=== PATIENT | female | born 1930 | race Caucasian/White ===

== ENCOUNTER 2016-03-01 14:52 | Outpatient (CLI) | payer MEDICARE, BC, OTHER | END 2016-03-01 14:53 | disposition home or self-care (01) | DX: M06.9 Rheumatoid arthritis, unspecified (principal); Z79.899 Other long term (current) drug therapy ==

== ENCOUNTER 2016-04-26 14:50 | Outpatient (CLI) | payer MEDICARE, BC, OTHER | END 2016-04-26 14:51 | disposition home or self-care (01) | DX: M06.9 Rheumatoid arthritis, unspecified (principal); Z79.899 Other long term (current) drug therapy ==

== ENCOUNTER 2016-06-21 14:51 | Outpatient (CLI) | payer MEDICARE, BC, OTHER | END 2016-06-21 14:52 | disposition home or self-care (01) | DX: M06.9 Rheumatoid arthritis, unspecified (principal); Z79.899 Other long term (current) drug therapy ==

== ENCOUNTER 2016-09-19 14:17 | Outpatient (CLI) | payer MEDICARE, BC, OTHER | END 2016-09-19 14:18 | disposition critical access hospital (66) | LOC: EMS 14:17 | PROVIDERS: ATTEND Surgery | DX: R42 Dizziness and giddiness (principal) | CPT/HCPCS: A0425; A0427 ==

== ENCOUNTER 2016-09-19 14:38 | Emergency (ER) | payer MEDICARE, BC, OTHER ==
[2016-09-19] MEDS ORDERED: SODIUM CHLORIDE 0.9% 500 ML IV ONE (14:47)
[2016-09-19 15:05] LABS: BASOPHILS # (AUTO) 0.1 10^3/uL (0.0-0.1); BASOPHILS % (AUTO) 0.6 %; EOSINOPHILS % (AUTO) 0.2 %; HCT - HEMATOCRIT 36.9 % (37.0-47.0); HGB - HEMOGLOBIN 12.4 g/dL (12.0-16.0); LYMPHOCYTES # (AUTO) 1.3 10^3/uL (1.5-3.5); LYMPHOCYTES % (AUTO) 12.1 %; MEAN CORPUSCULAR HEMOGLOBIN 36.5 pg (27.0-31.0); MEAN CORPUSCULAR HGB CONC 33.7 g/dL (32.0-36.0); MEAN CORPUSCULAR VOLUME 108.1 fL (81.0-99.0); MONOCYTES # (AUTO) 0.6 10^3/uL (0.0-1.0); MONOCYTES % (AUTO) 5.7 %; NEUTROPHILS # (AUTO) 8.5 10^3/uL (1.5-6.6); NEUTROPHILS % (AUTO) 81.4 %; NUCLEATED RED BLOOD CELLS AUTO 0.3 /100WBC; RED BLOOD COUNT 3.41 10^6/uL (4.20-5.40); RED CELL DISTRIBUTION WIDTH 14.9 % (12.0-15.0); UNCORRECTED WHITE BLOOD COUNT 10.4 x10^3/uL; WHITE BLOOD COUNT 10.4 x10^3/uL (4.8-10.8)
--- NOTE | 2016-09-19 15:11 | ED Physician Documentation ---
History of Present Illness - Stated complaint Stated Complaint: LIGHTHEADED - Chief complaint Chief Complaint: Cardiac - History obtained from History obtained from: Patient, EMS, Other (pmd) - History of Present Illness Timing: How many weeks ago (1) - Additonal information Additional information: This 86-year-old female went to her primary care doctor's office for routine follow-up today and was noted to have a heart rate of 130 and a low blood pressure with a systolic of 70. The patient herself states that she was not feeling ill and does not have any specific complaints. She has had intermittent lightheadedness and dizziness and this is been ongoing for some time. She has had a nosebleed last week.She has not had any recent medication changes or recent illness. Review of Systems Constitutional: denies: Fever, Chills, Myalgias, Fatigue, Sweats Eyes: denies: Decreased vision Ears: denies: Ear pain Nose: reports: Epistaxis (last week). denies: Congestion Throat: denies: Dental pain / toothache, Oral lesions / sores, Sore throat Cardiac: reports: Palpitations. denies: Chest pain / pressure, Pedal edema, Calf pain Respiratory: denies: Dyspnea, Cough GI: denies: Abdominal Pain, Nausea, Vomiting, Constipation, Diarrhea : denies: Dysuria, Frequency Skin: denies: Rash Musculoskeletal: denies: Neck pain, Back pain, Extremity pain Neurologic: denies: Generalized weakness, Focal weakness, Numbness, Difficulty speaking, Near syncope, Syncope, Seizure, Confused, Altered mental status, Headache, Head injury, LOC PD PAST MEDICAL HISTORY - Past Medical History Cardiovascular: Hypertension Respiratory: COPD : Frequency HEENT: Chronic hearing loss Musculoskeletal: Rheumatoid arthritis, Osteoporosis Derm: None - Past Surgical History Past Surgical History: Yes /SIGHTER: Hysterectomy - Present Medications Home Medications: Ambulatory Orders Medication Instructions Recorded Confirmed Calcium Citrate/Vitamin D3 1 each PO DAILY 06/14/12 08/18/16 [Calcium Citrate - Vit D Tablet] Celecoxib [Celebrex] 200 mg PO BID 06/14/12 08/18/16 Cranberry Fruit [Cranberry] 2 tab PO DAILY 06/14/12 08/18/16 Folic Acid 1 mg PO DAILY 06/14/12 08/18/16 Lecithin 1,200 mg PO DAILY 06/14/12 09/19/16 Leucovorin Calcium 5 mg PO Q7D 06/14/12 09/19/16 Methotrexate 15 mg PO Q7D 06/14/12 09/19/16 Prazosin HCl [Minipress] 2 tab ORAL BID 06/14/12 08/18/16 inFLIXimab [Remicade] 400 mg IV Q30D 07/27/13 08/18/16 Denosumab [Prolia] 60 mg IM ONCE 07/10/14 08/18/16 Nebivolol HCl [Bystolic] 5 mg PO DAILY 03/19/15 09/19/16 Multivitamin [Multiple Vitamins] 1 tab PO DAILY 06/23/16 09/19/16 Olmesartan/Hydrochlorothiazide 2 tab PO DAILY MDD 20/12.5 mg tabs 06/23/1609/19 [Olmesartan-Hctz 20-12.5 mg Tab] - Allergies Allergies/Adverse Reactions: Allergies Allergy/AdvReac Type Severity Reaction Status Date / Time Penicillins Allergy Intermediate Rash Verified 06/23/16 16:11 Sulfa (Sulfonamide Allergy Intermediate Rash Verified 06/23/16 16:11 Antibiotics) - Social History Does the pt smoke?: No Smoking Status: Never smoker Does the pt drink ETOH?: No Does the pt have substance abuse?: No - Immunizations Immunizations are current?: Yes - POLST Patient has POLST: No PD ED PE NORMAL - Vitals Vital signs reviewed: Yes (tachycardic and hypotensive ) - General General: Alert and oriented X 3, No acute distress, Well developed/nourished - HEENT HEENT: Atraumatic, PERRL - Neck Neck: Supple, no meningeal sign - Cardiac Cardiac: Other (tachy without murmer and regular) - Respiratory Respiratory: No respiratory distress, Other (scattered rhonchi) - Abdomen Abdomen: Soft, Non tender - Back Back: No CVA TTP, No spinal TTP - Derm Derm: Normal color, Warm and dry, No rash - Extremities Extremities: No edema, Other (arthritic deformity of the hands.) - Neuro Neuro: Alert and oriented X 3, credit risk associate 2-12 intact, No motor deficit, No sensory deficit, Normal speech - Psych Psych: Normal mood, Normal affect Results - Vitals Vitals: Vital Signs - 24 hr 08/15/17 08/15/17 08/15/17 14:46 14:51 16:58 Temperature 36.2 C L Heart Rate 86 111 H Respiratory 16 16 Rate Blood Pressure 96/76 119/80 O2 Saturation 98 95 09/19/16 09/19/16 09/19/16 17:30 17:39 18:05 Temperature Heart Rate 80 121 H 59 L Respiratory 16 Rate Blood Pressure 131/95 H 167/121 H 107/57 L O2 Saturation 97 96 09/19/16 09/19/16 18:31 19:37 Temperature Heart Rate 55 L 61 Respiratory 18 Rate Blood Pressure 128/74 164/85 H O2 Saturation 97 100 Oxygen O2 Source Room air - EKG (time done) 1448 Rate: Rate (enter#) (122) Rhythm: Other (read a junctional tachycardia) Compare to prior EKG: Old EKG unavailable Computer interpretation: Agree with computer 1726 Rate: Rate (enter#) (66) Rhythm: NSR Ischemia: Normal ST segments Compare to prior EKG: Changed from prior EKG (rhythm is now identified as sinus) Computer interpretation: Agree with computer - Labs Labs: Laboratory Tests 09/19/16 09/19/16 09/19/16 14:58 14:58 14:58 WBC 10.4 RBC 3.41 L Hgb 12.4 Hct 36.9 L MCV 108.1 H MCH 36.5 H MCHC 33.7 RDW 14.9 Plt Count 206 MPV 9.0 Neut # 8.5 H Lymph # 1.3 L [place] # 0.6 Eos # 0.0 Baso # 0.1 Absolute Nucleated RBC 0.03 Nucleated RBCs 0.3 Sodium 133 L Potassium 4.5 Chloride 97 L Carbon Dioxide 27 Anion Gap 9.0 BUN 37 H Creatinine 1.0 Estimated GFR (MDRD) 53 L Glucose 103 H Calcium 9.0 Total Bilirubin 0.9 AST 29 ALT 19 Alkaline Phosphatase 36 L Troponin I 0.27 Total Protein 6.3 L Albumin 3.5 Globulin 2.8 Albumin/Globulin Ratio 1.3 Lipase 34 Urine Color Urine Clarity Urine pH Ur Specific [place] Urine Protein Urine Glucose (UA) Urine Ketones Urine Occult Blood Urine Nitrite Urine Bilirubin Urine Urobilinogen Ur Leukocyte Esterase Ur Microscopic Review Urine Culture Comments 09/19/16 09/19/16 16:30 17:07 WBC RBC Hgb Hct MCV MCH MCHC RDW Plt Count MPV Neut # Lymph # [place] # Eos # Baso # Absolute Nucleated RBC Nucleated RBCs Sodium Potassium Chloride Carbon Dioxide Anion Gap BUN Creatinine Estimated GFR (MDRD) Glucose Calcium Total Bilirubin AST ALT Alkaline Phosphatase Troponin I 0.79 H* Total Protein Albumin Globulin Albumin/Globulin Ratio Lipase Urine Color YELLOW Urine Clarity CLEAR Urine pH 6.0 Ur Specific [place] 1.015 Urine Protein NEGATIVE Urine Glucose (UA) NEGATIVE Urine Ketones NEGATIVE Urine Occult Blood NEGATIVE Urine Nitrite NEGATIVE Urine Bilirubin NEGATIVE Urine Urobilinogen 0.2 (NORMAL) Ur Leukocyte Esterase NEGATIVE Ur Microscopic Review NOT INDICATED Urine Culture Comments NOT INDICATED - Rads (name of study) 2 view chest Radiology: Prelim report reviewed (Impression: New lateral left upper lobe opacity raising concern for lung nodule. Recommend chest CT.), EMP read indepedently, See rad report PD MEDICAL DECISION MAKING - ED course Complexity details: reviewed results, re-evaluated patient, considered differential, d/w patient, d/w family ED course: 86-year-old female arrived here from her primary care doctor's office by ambulance with heart rate of 130. She is asymptomatic with this but has a blood pressure of about 90 on arrival to the emergency department. I am not able to elicit a history of the patient feeling ill prior to all this. She does relate a history of periodic lightheaded and dizziness that occurred in brief episodes lasting seconds 1 week ago. Today she has a negative review of systems denies any specific symptoms.Her initial electrocardiogram is read by the computer as junctional tachycardia and I am not able to elicit P waves in any leads. The regular rhythm is regular with a narrow complex. She is administered a liter of saline which reduces a heart rate to 110. She is administered adenosine 6 mg intravenously with conversion to a sinus rhythm with a rate of 80. Her initial troponin is mildly elevated at 0.27. A repeat troponin 2 hours later is 0.79.. She does revert to the junctional tachycardia and is given IV diltiazem. Her rate slows into the 60s and is stable. Dr. Delaney at [facility] is consulted in the case and recommends administration of 180 mg of diltiazem orally and he will contact the nursing dog license officer supervisor to arrange a bed for the patient in transfer. Departure - Departure Disposition: 02 Transfer Acute Care Hosp Clinical Impression: SVT (supraventricular tachycardia) Myocardial infarction acute Qualifiers: Myocardial infarction ST status: non-ST elevation myocardial infarction Qualified Code(s): I21.4 - Non-ST elevation (NSTEMI) myocardial infarction Condition: Stable Discharge Date/Time: 09/19/16 20:15
[2016-09-19 15:20] LABS: ALBUMIN/GLOBULIN RATIO 1.3 (1.0-2.2); BILIRUBIN,TOTAL 0.9 mg/dL (0.2-1.0); POTASSIUM 4.5 mmol/L (3.5-5.0); TOTAL PROTEIN 6.3 g/dL (6.7-8.2)
--- NOTE | 2016-09-19 15:33 | XRAY Preliminary Report ---
Exam: XR Chest 2 View PA/LAT IMPRESSION: 1. New lateral left upper lobe opacity raising concern for lung nodule. Recommend chest CT. [facility] SITE ID: [id number]
--- NOTE | 2016-09-19 15:36 | XRAY Report ---
EXAM: CHEST RADIOGRAPHY EXAM DATE: 09/19/2016 02:50 PM. CLINICAL HISTORY: Dyspnea. COMPARISON: 09/13/2013. TECHNIQUE: 2 views. FINDINGS: Lungs/Pleura: New lateral left upper lobe opacity projecting near an EKG lead. Mediastinum: Heart and mediastinal contours are unremarkable. Other: Severe S-shaped thoracolumbar scoliosis, convex left at the thoracolumbar junction. Left upper quadrant surgical clips. IMPRESSION: 1. New lateral left upper lobe opacity raising concern for lung nodule. Recommend chest CT. [facility] Referring Provider Line: [phone] SITE ID: [id number]
[2016-09-19 16:44] LABS: BILIRUBIN,URINE NEGATIVE (NEGATIVE)
[2016-09-19 16:45] LABS: UA CHARGE (STRIP ONLY) YES; UR CULTURE IF IND NOT INDICATED
[2016-09-19] MEDS ORDERED: ADENOSINE 6 MG/2 ML VIAL IVP STA (17:24)
[2016-09-19] MEDS ORDERED: ADENOSINE 6 MG/2 ML VIAL IVP ONE (17:24)
[2016-09-19] MEDS ORDERED: diltiaZEM INJ 5 MG/ML VIAL IVP STA (17:49)
[2016-09-19] MEDS ORDERED: diltiaZEM INJ 5 MG/ML VIAL ONE (17:57)
[2016-09-19] MEDS ORDERED: diltiaZEM CD 120 MG CAPSULE PO STA (18:44)
[2016-09-19] MEDS ORDERED: diltiaZEM CD 180 MG CAPSULE PO STA (18:46)
[2016-09-19 19:37] VITALS: BP 164/85
== END 2016-09-19 20:15 | disposition short-term general hospital (02) ==
LOC: EDUNIT# → ED 14:38
DX: I47.1 Supraventricular tachycardia (principal); I21.4 Non-ST elevation (NSTEMI) myocardial infarction; I10 Essential (primary) hypertension; R94.31 Abnormal electrocardiogram [ECG] [EKG]
CPT/HCPCS: 36415; 71020; 80053; 81003; 83690; 84484; 85025; 93005; 96361; 96374; 96375; 99284; 99285; A9270; J0153; 81001; 87086

== ENCOUNTER 2016-09-19 20:18 | Outpatient (CLI) | payer MEDICARE, BC, OTHER | END 2016-09-19 20:19 | disposition short-term general hospital (02) | LOC: EMS 20:18 | PROVIDERS: ATTEND Surgery | DX: I21.4 Non-ST elevation (NSTEMI) myocardial infarction (principal) | CPT/HCPCS: A0425; A0426 ==

== ENCOUNTER 2016-11-15 17:23 | Outpatient (CLI) | payer MEDICARE, BC, OTHER ==
[2016-11-15] MEDS ORDERED: IOPAMIDOL-300 50 ML VIAL ONE (17:44)
[2016-11-15] MEDS ORDERED: IOPAMIDOL-300 100 ML VIAL ONE (17:44)
[2016-11-15] MEDS ORDERED: IOPAMIDOL-300 100 ML VIAL IVP ONE ×2 (20:24)
[2016-11-15] MEDS ORDERED: IOPAMIDOL-300 50 ML VIAL PO ONE (20:24)
--- NOTE | 2016-11-15 21:19 | CT Preliminary Report ---
Exam: CT ABDOMEN/PELVIS W/ IMPRESSION: 1. Grossly stable pancreatic head Lesion. 2. New mild left hydronephrosis. Moderate left renal atrophy. 3. Chronic lung disease. 4. Hepatic and right renal cysts. 5. Stable, otherwise unremarkable exam. 6. Exam limited by the lack of intravenous contrast as discussed above. [facility] The call report notification system was initiated by Dr. Kellie Rucker at 21:12 hrs on 11/15/16. The above findings were discussed with Ms De Jesusen Roger PAC by Dr. Kellie Rucker at 21:17 hrs on . SITE ID: [id number]
--- NOTE | 2016-11-15 21:38 | CT Report ---
EXAM: CT ABDOMEN AND PELVIS EXAM DATE: 11/15/2016 07:40 PM. CLINICAL HISTORY: Pancreatic cancer. Epigastric pain, nausea with vomiting, unspecified. COMPARISONS: 07/09/2015. TECHNIQUE: Routine helical CT imaging was performed through the abdomen and pelvis. IV contrast: Esse ntially a noncontrast study since there was extravasation of contrast. Enteric contrast: Oral. Recons tructions: Coronal and sagittal. In accordance with CT protocol optimization, one or more of the following dose reduction techniques w ere utilized for this exam: automated exposure control, adjustment of mA and/or KV based on patient s ize, or use of iterative reconstructive technique. FINDINGS: Lung Bases: Emphysematous changes. Liver: Several 2 cm and smaller hepatic cysts. Gallbladder/Bile Ducts: Unremarkable. Spleen: Absent. Pancreas: Grossly stable 5 cm multi-compartmental cystic lesion head of the pancreas. No pancreatic d uct dilatation in the residual pancreas. Adrenal Glands: Normal. Kidneys: 4 cm right renal cyst. Moderate left renal atrophy. New mild left hydronephrosis. Ureters cannot be assessed due to minimal retroperitoneal fat and lack of intravenous contrast. Peritoneal Cavity/Bowel: Normal. No free fluid, free air or adenopathy. No masses or acute inflammato ry process. Oral contrast extends through to the transverse colon. Appendix not seen. Pelvic Organs: Hysterectomy. Small caliber urinary bladder. No free fluid nor adnexal mass lesions. Vasculature: No aneurysms or other significant abnormality. Bones: Remote ununited fracture left symphysis. Marked degenerative changes throughout the markedly scoliotic spine. Other: None. IMPRESSION: 1. Grossly stable pancreatic head cystic lesion. 2. New mild left hydronephrosis. Moderate left renal atrophy. 3. Chronic lung disease. 4. Hepatic and right renal cysts. 5. Stable, otherwise unremarkable exam. 6. Exam limited by the lack of intravenous contrast as discussed above. [facility] The call report notification system was initiated by Dr. Kellie Rucker at 21:12 hrs on 11/15/16. The above findings were discussed with Ms Zeina Duran PAC by Dr. Kellie Rucker at 21:17 hrs on . Referring Provider Line: [phone] SITE ID: [id number]
== END 2016-11-15 17:24 | disposition home or self-care (01) ==
LOC: DI 17:23
PROVIDERS: ATTEND Physician Assistant Medical
DX: K86.9 Disease of pancreas, unspecified (principal); N13.30 Unspecified hydronephrosis; N26.1 Atrophy of kidney (terminal); J98.4 Other disorders of lung; N28.1 Cyst of kidney, acquired; K76.89 Other specified diseases of liver
CPT/HCPCS: 74177; Q9967

== ENCOUNTER 2016-11-15 20:06 | Emergency (ER) | payer MEDICARE, BC, OTHER ==
--- NOTE | 2016-11-15 21:08 | ED Physician Documentation ---
PD HPI UPPER EXT INJURY - Stated complaint Stated Complaint: IV SITE FAILURE - Chief complaint Chief Complaint: Ext Problem - History obtained from History obtained from: Patient - History of Present Illness Type of injury: Other (In CT tonight for a contrast-enhanced scan, It infiltrated in the right antecubital fossa. She has no symptoms of pain there or tightness. 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 - Present Medications Home Medications: Ambulatory Orders Medication Instructions Recorded Confirmed Calcium Citrate/Vitamin D3 1 each PO DAILY 06/14/12 08/18/16 [Calcium Citrate - Vit D Tablet] Celecoxib [Celebrex] 200 mg PO BID 06/14/12 08/18/16 Cranberry Fruit [Cranberry] 2 tab PO DAILY 06/14/12 08/18/16 Folic Acid 1 mg PO DAILY 06/14/12 08/18/16 Lecithin 1,200 mg PO DAILY 06/14/12 09/19/16 Leucovorin Calcium 5 mg PO Q7D 06/14/12 09/19/16 Methotrexate 15 mg PO Q7D 06/14/12 09/19/16 Prazosin HCl [Minipress] 2 tab ORAL BID 06/14/12 08/18/16 inFLIXimab [Remicade] 400 mg IV Q30D 07/27/13 08/18/16 Denosumab [Prolia] 60 mg IM ONCE 07/10/14 08/18/16 Nebivolol HCl [Bystolic] 5 mg PO DAILY 03/19/15 09/19/16 Multivitamin [Multiple Vitamins] 1 tab PO DAILY 06/23/16 09/19/16 Olmesartan/Hydrochlorothiazide 2 tab PO DAILY MDD 20/12.5 mg tabs 06/23/1609/19 [Olmesartan-Hctz 20-12.5 mg Tab] - Allergies Allergies/Adverse Reactions: Allergies Allergy/AdvReac Type Severity Reaction Status Date / Time Penicillins Allergy Intermediate Rash Verified 06/23/16 16:11 Sulfa (Sulfonamide Allergy Intermediate Rash Verified 06/23/16 16:11 Antibiotics) - Social History Does the pt smoke?: No Smoking Status: Never smoker Does the pt drink ETOH?: No Does the pt have substance abuse?: No - Immunizations Immunizations are current?: Yes - POLST Patient has POLST: No PD ED PE NORMAL - Vitals Vital signs reviewed: Yes - General General: Alert and oriented X 3, No acute distress - Extremities Extremities: Other (In the right antecubital fossa there is a small area of swelling, there is no skin breakdown, tenderness, or limited range of motion.) - Neuro Neuro: Alert and oriented X 3, Normal speech Results - Vitals Vitals: Vital Signs - 24 hr 11/15/16 20:20 Temperature 36.7 C Heart Rate 75 Respiratory 17 Rate Blood Pressure 185/79 H O2 Saturation 97 Oxygen O2 Source Room air PD MEDICAL DECISION MAKING - ED course ED course: Review of the available literature shows that there is no specific intervention that has been proven to decrease morbidity from contrast extravasation and watchful waiting was advised. Departure - Departure Disposition: 01 Home, Self Care Clinical Impression: Extravasation injury of intravenous catheter site with other complication Qualifiers: Encounter type: initial encounter Qualified Code(s): T82.898A - Other specified complication of vascular prosthetic devices, implants and grafts, initial encounter Condition: Good Record reviewed to determine appropriate education?: Yes Comments: Use warm compresses. Return immediately if he develops significant pain, limited range of motion, or skin discoloration other than what is already present. Your blood pressure was elevated today on check into the emergency department. This does not mean that you have hypertension, it is a common phenomenon to come to the emergency department and have elevated blood pressure. I recommend that she see your primary care physician within the week to have it rechecked when you are feeling better.
[2016-11-15 21:53] VITALS: BP 172/81
== END 2016-11-15 21:59 | disposition home or self-care (01) ==
LOC: ED 20:06
DX: T82.898A Other specified complication of vascular prosthetic devices, implants and grafts, initial encounter (principal); I10 Essential (primary) hypertension; J44.9 Chronic obstructive pulmonary disease, unspecified; M06.9 Rheumatoid arthritis, unspecified; M81.0 Age-related osteoporosis without current pathological fracture; R10.13 Epigastric pain; R11.2 Nausea with vomiting, unspecified; C25.9 Malignant neoplasm of pancreas, unspecified; K86.9 Disease of pancreas, unspecified; N13.30 Unspecified hydronephrosis; N26.1 Atrophy of kidney (terminal); J98.4 Other disorders of lung; N28.1 Cyst of kidney, acquired; K76.89 Other specified diseases of liver
CPT/HCPCS: 36415; 74177; 80053; 82150; 83690; 85025; 86301; 87339; 99282; 99283; Q9967

== ENCOUNTER 2016-11-15 22:06 | Outpatient (CLI) | payer MEDICARE, BC, OTHER ==
[2016-11-15 19:12] LABS: ALBUMIN/GLOBULIN RATIO 1.1 (1.0-2.2); BASOPHILS # (AUTO) 0.1 10^3/uL (0.0-0.1); BASOPHILS % (AUTO) 0.4 %; BILIRUBIN,TOTAL 0.6 mg/dL (0.2-1.0); CALCIUM 9.5 mg/dL (8.5-10.3); CREATININE 0.8 mg/dL (0.4-1.0); EOSINOPHILS % (AUTO) 0.2 %; HCT - HEMATOCRIT 33.8 % (37.0-47.0); HGB - HEMOGLOBIN 11.1 g/dL (12.0-16.0); LYMPHOCYTES # (AUTO) 1.6 10^3/uL (1.5-3.5); LYMPHOCYTES % (AUTO) 13.1 %; MEAN CORPUSCULAR HEMOGLOBIN 35.6 pg (27.0-31.0); MEAN CORPUSCULAR HGB CONC 32.8 g/dL (32.0-36.0); MEAN CORPUSCULAR VOLUME 108.4 fL (81.0-99.0); MONOCYTES # (AUTO) 1.1 10^3/uL (0.0-1.0); MONOCYTES % (AUTO) 9.1 %; NEUTROPHILS # (AUTO) 9.5 10^3/uL (1.5-6.6); NEUTROPHILS % (AUTO) 77.2 %; NUCLEATED RED BLOOD CELLS AUTO 0.2 /100WBC; POTASSIUM 4.8 mmol/L (3.5-5.0); RED BLOOD COUNT 3.12 10^6/uL (4.20-5.40); RED CELL DISTRIBUTION WIDTH 14.6 % (12.0-15.0); TOTAL PROTEIN 6.6 g/dL (6.7-8.2); UNCORRECTED WHITE BLOOD COUNT 12.4 x10^3/uL; WHITE BLOOD COUNT 12.4 x10^3/uL (4.8-10.8)
[2016-11-15 19:27] LABS: H. PYLORI IGG ANTIBODY Negative (Negative); HPYLORI NEG QC Negative (Negative); HPYLORI POS QC POSITIVE (Positive)
== END 2016-11-15 22:07 | disposition home or self-care (01) ==
LOC: LAB.WCP 22:06
PROVIDERS: ATTEND Physician Assistant Medical
DX: R11.2 Nausea with vomiting, unspecified (principal); C25.9 Malignant neoplasm of pancreas, unspecified; R10.13 Epigastric pain
CPT/HCPCS: 36415; 80053; 82150; 83690; 85025; 86301; 87339

== ENCOUNTER 2016-11-17 08:00 | Outpatient (CLI) | payer MEDICARE, BC, OTHER | END 2016-11-17 08:01 | disposition home or self-care (01) | LOC: LAB.R 08:00 | PROVIDERS: ATTEND Physician Assistant Medical | DX: R10.13 Epigastric pain (principal) | CPT/HCPCS: 87086 ==

== ENCOUNTER 2016-11-28 14:46 | Outpatient (CLI) | payer MEDICARE, BC, OTHER ==
[2016-11-28 19:15] LABS: BASOPHILS # (AUTO) 0.1 10^3/uL (0.0-0.1); BASOPHILS % (AUTO) 0.8 %; EOSINOPHILS # (AUTO) 0.1 10^3/uL (0.0-0.7); EOSINOPHILS % (AUTO) 1.2 %; HCT - HEMATOCRIT 32.9 % (37.0-47.0); LYMPHOCYTES # (AUTO) 2.2 10^3/uL (1.5-3.5); LYMPHOCYTES % (AUTO) 28.3 %; MEAN CORPUSCULAR HEMOGLOBIN 36.5 pg (27.0-31.0); MEAN CORPUSCULAR HGB CONC 33.3 g/dL (32.0-36.0); MEAN CORPUSCULAR VOLUME 109.5 fL (81.0-99.0); MEAN PLATELET VOLUME 9.8 fL (7.9-10.8); MONOCYTES # (AUTO) 0.8 10^3/uL (0.0-1.0); MONOCYTES % (AUTO) 10.6 %; NEUTROPHILS # (AUTO) 4.7 10^3/uL (1.5-6.6); NEUTROPHILS % (AUTO) 59.1 %; NUCLEATED RED BLOOD CELLS AUTO 0.5 /100WBC; RED BLOOD COUNT 3.01 10^6/uL (4.20-5.40); RED CELL DISTRIBUTION WIDTH 15.3 % (12.0-15.0); UNCORRECTED WHITE BLOOD COUNT 7.9 x10^3/uL; WHITE BLOOD COUNT 7.9 x10^3/uL (4.8-10.8)
[2016-11-28 19:23] LABS: BILIRUBIN,TOTAL 0.5 mg/dL (0.2-1.0); CALCIUM 9.2 mg/dL (8.5-10.3); CREATININE 0.8 mg/dL (0.4-1.0); POTASSIUM 3.9 mmol/L (3.5-5.0); TOTAL PROTEIN 6.2 g/dL (6.7-8.2)
== END 2016-11-28 14:47 | disposition home or self-care (01) ==
LOC: LAB.WCP 14:46
PROVIDERS: ATTEND Physician Assistant Medical
DX: R11.2 Nausea with vomiting, unspecified (principal)
CPT/HCPCS: 36415; 80053; 85025

== ENCOUNTER 2017-01-11 14:57 | Outpatient (CLI) | payer MEDICARE, BC, OTHER ==
[2017-01-11 18:52] LABS: BASOPHILS % (AUTO) 0.5 %; EOSINOPHILS % (AUTO) 0.3 %; HCT - HEMATOCRIT 33.8 % (37.0-47.0); HGB - HEMOGLOBIN 10.8 g/dL (12.0-16.0); LYMPHOCYTES # (AUTO) 2.1 10^3/uL (1.5-3.5); LYMPHOCYTES % (AUTO) 21.8 %; MEAN CORPUSCULAR HGB CONC 31.9 g/dL (32.0-36.0); MEAN CORPUSCULAR VOLUME 106.6 fL (81.0-99.0); MEAN PLATELET VOLUME 10.2 fL (7.9-10.8); MONOCYTES # (AUTO) 0.9 10^3/uL (0.0-1.0); MONOCYTES % (AUTO) 9.5 %; NEUTROPHILS # (AUTO) 6.5 10^3/uL (1.5-6.6); NEUTROPHILS % (AUTO) 67.9 %; NUCLEATED RED BLOOD CELLS AUTO 0.1 /100WBC; RED BLOOD COUNT 3.17 10^6/uL (4.20-5.40); RED CELL DISTRIBUTION WIDTH 14.8 % (12.0-15.0); UNCORRECTED WHITE BLOOD COUNT 9.6 x10^3/uL; WHITE BLOOD COUNT 9.6 x10^3/uL (4.8-10.8)
[2017-01-11 19:14] LABS: ALBUMIN/GLOBULIN RATIO 0.8 (1.0-2.2); BILIRUBIN,TOTAL 0.4 mg/dL (0.2-1.0); BUN - BLOOD UREA NITROGEN 23 mg/dL (6-20); CALCIUM 8.9 mg/dL (8.5-10.3); CARBON DIOXIDE - CO2 25 mmol/L (21-32); CHLORIDE 96 mmol/L (101-111); CREATININE 0.9 mg/dL (0.4-1.0); GFR - MDRD 60 (>89); GLUCOSE 97 mg/dL (70-100); POTASSIUM 3.9 mmol/L (3.5-5.0); SODIUM 130 mmol/L (135-145); TOTAL PROTEIN 6.8 g/dL (6.7-8.2)
== END 2017-01-11 14:58 | disposition home or self-care (01) ==
LOC: LAB.WCP 14:57
PROVIDERS: ATTEND Physician Assistant Medical
DX: K59.00 Constipation, unspecified (principal)
CPT/HCPCS: 36415; 80053; 84443; 85025

== ENCOUNTER 2017-01-12 14:10 | Emergency (ER) | payer MEDICARE, BC, OTHER ==
[2017-01-12] MEDS ORDERED: PANTOPRAZOLE 40 MG VIAL IVP STA (15:40)
[2017-01-12] MEDS ORDERED: SODIUM CHLORIDE 0.9% 1,000 ML IV ONE (15:40)
--- NOTE | 2017-01-12 15:42 | ED Physician Documentation ---
PD HPI GI BLEED - Stated complaint Stated Complaint: FEMALE - Chief complaint Chief Complaint: General - History obtained from History obtained from: Patient, Family - History of Present Illness Timing - onset: Today Timing - duration: Hours Timing - details: Abrupt onset, Still present Associated symptoms: BRBPR, Maroon stool, Dizzy Improved by: Laying still Similar symptoms before: Has not had sx before Recently seen: Clinic - Additional information Additional information: 86-year-old female has had a recent strain of her right chest wall. She has been into see her river rafting guide and her primary care doctor had x-rays done of her chest had some blood work done yesterday. Today she returned from her doctor's office and had a bloody bowel movement. She is here now with bloody bowel movement and dizziness. Review of Systems Constitutional: denies: Fever Eyes: denies: Decreased vision Ears: denies: Ear pain Nose: denies: Congestion Throat: denies: Sore throat Cardiac: reports: Chest pain / pressure Respiratory: denies: Dyspnea, Cough GI: reports: Abdominal Pain, Bloody / black stool. 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 - Present Medications Home Medications: Ambulatory Orders Medication Instructions Recorded Confirmed Calcium Citrate/Vitamin D3 1 each PO DAILY 06/14/12 01/12/17 [Calcium Citrate - Vit D Tablet] Celecoxib [Celebrex] 200 mg PO BID 06/14/12 01/12/17 Cranberry Fruit [Cranberry] 2 tab PO DAILY 06/14/12 01/12/17 Folic Acid 1 mg PO DAILY 06/14/12 01/12/17 Lecithin 1,200 mg PO DAILY 06/14/12 01/12/17 Leucovorin Calcium 5 mg PO Q7D 06/14/12 01/12/17 Methotrexate 15 mg PO Q7D 06/14/12 12/08/16 Prazosin HCl [Minipress] 2 tab ORAL BID 06/14/12 01/12/17 inFLIXimab [Remicade] 400 mg IV Q30D 07/27/13 01/12/17 Denosumab [Prolia] 60 mg IM ONCE 07/10/14 01/12/17 Nebivolol HCl [Bystolic] 5 mg PO DAILY 03/19/15 01/12/17 Multivitamin [Multiple Vitamins] 1 tab PO DAILY 06/23/16 01/12/17 Olmesartan/Hydrochlorothiazide 2 tab PO DAILY MDD 20/12.5 mg tabs 06/23/1601/12 [Olmesartan-Hctz 20-12.5 mg Tab] - Allergies Allergies/Adverse Reactions: Allergies Allergy/AdvReac Type Severity Reaction Status Date / Time Penicillins Allergy Intermediate Rash Verified 06/23/16 16:11 Sulfa (Sulfonamide Allergy Intermediate Rash Verified 06/23/16 16:11 Antibiotics) Latex, Natural Rubber Allergy Rash Verified 01/12/17 14:33 - Social History Does the pt smoke?: No Smoking Status: Never smoker Does the pt drink ETOH?: No Does the pt have substance abuse?: No - Immunizations Immunizations are current?: Yes - POLST Patient has POLST: No PD ED PE NORMAL - Vitals Vital signs reviewed: Yes (Hypotensive) - General General: No acute distress, Well developed/nourished - HEENT HEENT: Atraumatic, PERRL, EOMI - Neck Neck: Supple, no meningeal sign - Cardiac Cardiac: RRR, No murmur - Respiratory Respiratory: No respiratory distress, Clear bilaterally - Abdomen Abdomen: Soft, Non tender - Rectal Rectal: Other (There are numerous external hemorrhoids that do not appear acutely inflamed. There is maroon stool which is guaiac positive in the vault. There is normal sphincter tone.) - Back Back: No CVA TTP, No spinal TTP - Derm Derm: Normal color, Warm and dry, No rash - Extremities Extremities: No deformity, No edema - Neuro Neuro: No motor deficit, No sensory deficit Eye Opening: Spontaneous Motor: Obeys Commands Verbal: Oriented GCS Score: 15 - Psych Psych: Normal mood, Normal affect Results - Vitals Vitals: Vital Signs - 24 hr 01/12/17 01/12/17 01/12/17 14:35 16:37 16:44 Temperature 36.9 C Heart Rate 93 118 H 91 Respiratory 20 18 15 Rate Blood Pressure 94/55 L 99/66 111/66 O2 Saturation 100 80 L 100 01/12/17 01/12/17 01/12/17 17:24 18:00 18:02 Temperature 35.9 C L 35.9 C L 36.2 C L Heart Rate 120 H 120 H 103 H Respiratory 16 16 18 Rate Blood Pressure 129/64 129/64 106/63 O2 Saturation 100 Oxygen O2 Source Non-rebreather mask - EKG (time done) 1458 Rate: Rate (enter#) (79) Rhythm: NSR, Other (pac's noted) Compare to prior EKG: Changed from prior EKG (prior tracing from 09-19-16 shows a junctional tachycardia ) Computer interpretation: Agree with computer - Labs Labs: Laboratory Tests 01/12/17 01/12/17 01/12/17 15:00 15:00 15:00 WBC 7.8 RBC 2.29 L Hgb 8.0 L Hct 23.8 L MCV 103.8 H MCH 34.8 H MCHC 33.5 RDW 14.8 Plt Count 298 MPV 9.0 Neut # 5.6 Lymph # 1.4 L [place] # 0.7 Eos # 0.0 Baso # 0.0 Absolute Nucleated RBC 0.00 Nucleated RBC % 0.0 Sodium 131 L Potassium 4.5 Chloride 98 L Carbon Dioxide 27 Anion Gap 6.0 BUN 45 H Creatinine 1.1 H Estimated GFR (MDRD) 47 L Glucose 115 H Calcium 8.1 L Total Bilirubin < 0.2 L AST 25 ALT 13 Alkaline Phosphatase 40 L Troponin I 0.12 Total Protein 5.9 L Albumin 2.7 L Globulin 3.2 Albumin/Globulin Ratio 0.8 L Lipase 18 L Blood Type Blood Type Recheck Antibody Screen Crossmatch IS Only 01/12/17 01/12/17 15:22 15:54 WBC RBC Hgb Hct MCV MCH MCHC RDW Plt Count MPV Neut # Lymph # [place] # Eos # Baso # Absolute Nucleated RBC Nucleated RBC % Sodium Potassium Chloride Carbon Dioxide Anion Gap BUN Creatinine Estimated GFR (MDRD) Glucose Calcium Total Bilirubin AST ALT Alkaline Phosphatase Troponin I Total Protein Albumin Globulin Albumin/Globulin Ratio Lipase Blood Type O POSITIVE Blood Type Recheck O POSITIVE Antibody Screen NEGATIVE Crossmatch IS Only See Detail Procedures - IVC sono (time) 1500 Bedside IVC sono: IVC measures (cm) (0.98), Low CVP, Dehydration PD MEDICAL DECISION MAKING - ED course Complexity details: reviewed old records, reviewed results, re-evaluated patient , considered differential, d/w patient, d/w family ED course: 86 y/o female with acute bloody bowel movement has come close to the transfusion threshold and is down about 10 points from yesterday. IV is begun and she is given saline and protonix. 4 units of blood are ordered and the surgeon and hospitalist are consulted. She denies use of ibuprofen or aleve for the treatment of a chest wall strain she had 3 weeks ago. We do not have an operating room available here at [facility] and the patient will need to be transferred. We attempted to transfer the patient to [facility] both of which were without beds for this patient. [facility] is consulted and were able to provide an intensive unit bed. The patient while here in the emergency department did get up to the bedside commode and had a syncopal episode followed by a seizure. She was able to resolve the seizure by herself and had a very short postictal period. Her first unit of blood is hung urgently. Dr. Eliecer Mosqueda the lighting fixtures decorator at [facility] is kind enough to accept the patient in transfer. - Critical Care Time(min): 35 Time Includes: Direct patient care, Review records, Reassess patient, Document care, Coordinate care, Medical consult, Family consult for tx jan Data interpretation: Pulse ox, Prior EKG Procedures excluded from critical care time: EKG Departure - Departure Disposition: 02 Transfer Acute Care Hosp Clinical Impression: GI bleeding Qualifiers: GI bleed type/associated pathology: melena Qualified Code(s): K92.1 - Melena Condition: Critical
[2017-01-12 15:47] LABS: BASOPHILS % (AUTO) 0.5 %; EOSINOPHILS % (AUTO) 0.2 %; HCT - HEMATOCRIT 23.8 % (37.0-47.0); LYMPHOCYTES # (AUTO) 1.4 10^3/uL (1.5-3.5); LYMPHOCYTES % (AUTO) 17.6 %; MEAN CORPUSCULAR HEMOGLOBIN 34.8 pg (27.0-31.0); MEAN CORPUSCULAR HGB CONC 33.5 g/dL (32.0-36.0); MEAN CORPUSCULAR VOLUME 103.8 fL (81.0-99.0); MONOCYTES # (AUTO) 0.7 10^3/uL (0.0-1.0); MONOCYTES % (AUTO) 9.4 %; NEUTROPHILS # (AUTO) 5.6 10^3/uL (1.5-6.6); NEUTROPHILS % (AUTO) 72.3 %; RED BLOOD COUNT 2.29 10^6/uL (4.20-5.40); RED CELL DISTRIBUTION WIDTH 14.8 % (12.0-15.0); UNCORRECTED WHITE BLOOD COUNT 7.8 x10^3/uL; WHITE BLOOD COUNT 7.8 x10^3/uL (4.8-10.8)
[2017-01-12 15:58] LABS: ALBUMIN/GLOBULIN RATIO 0.8 (1.0-2.2); BILIRUBIN,TOTAL < 0.2 mg/dL (0.2-1.0); BUN - BLOOD UREA NITROGEN 45 mg/dL (6-20); CALCIUM 8.1 mg/dL (8.5-10.3); CARBON DIOXIDE - CO2 27 mmol/L (21-32); CHLORIDE 98 mmol/L (101-111); CREATININE 1.1 mg/dL (0.4-1.0); GFR - MDRD 47 (>89); GLUCOSE 115 mg/dL (70-100); LIPASE 18 U/L (22-51); POTASSIUM 4.5 mmol/L (3.5-5.0); SODIUM 131 mmol/L (135-145); TOTAL PROTEIN 5.9 g/dL (6.7-8.2)
[2017-01-12] MEDS ORDERED: PANTOPRAZOLE 40 MG VIAL ONE (16:04)
[2017-01-12] MEDS ORDERED: LORazepam 2 MG/ML VIAL ONE (16:44)
[2017-01-12] MEDS ORDERED: ONDANSETRON 4 MG/2 ML VIAL IVP STA (16:49)
[2017-01-12] MEDS ORDERED: ONDANSETRON 4 MG/2 ML VIAL ONE (16:51)
[2017-01-12 18:06] VITALS: BP 106/63
== END 2017-01-12 18:25 | disposition short-term general hospital (02) ==
LOC: ED 14:10
DX: K92.1 Melena (principal)
CPT/HCPCS: 36415; 36430; 80053; 83690; 84484; 85025; 86850; 86900; 86901; 86920; 93005; 96374; 96375; 99284; 99291; P9016

== ENCOUNTER 2017-01-12 18:32 | Outpatient (CLI) | payer MEDICARE, BC, OTHER | END 2017-01-12 18:33 | disposition short-term general hospital (02) | LOC: EMS 18:32 | PROVIDERS: ATTEND Surgery | DX: K92.2 Gastrointestinal hemorrhage, unspecified (principal) | CPT/HCPCS: A0425; A0426 ==

== ENCOUNTER 2017-02-23 08:00 | Outpatient (CLI) | payer MEDICARE, BC, OTHER ==
[2017-02-23 19:10] LABS: BASOPHILS % (AUTO) 0.5 %; EOSINOPHILS # (AUTO) 0.1 10^3/uL (0.0-0.7); EOSINOPHILS % (AUTO) 1.3 %; HGB - HEMOGLOBIN 11.1 g/dL (12.0-16.0); LYMPHOCYTES # (AUTO) 2.5 10^3/uL (1.5-3.5); LYMPHOCYTES % (AUTO) 31.2 %; MEAN CORPUSCULAR HGB CONC 31.8 g/dL (32.0-36.0); MEAN CORPUSCULAR VOLUME 100.8 fL (81.0-99.0); MEAN PLATELET VOLUME 11.6 fL (7.9-10.8); MONOCYTES # (AUTO) 0.9 10^3/uL (0.0-1.0); MONOCYTES % (AUTO) 11.3 %; NEUTROPHILS # (AUTO) 4.5 10^3/uL (1.5-6.6); NEUTROPHILS % (AUTO) 55.7 %; PLT - PLATELET COUNT 265 10^3/uL (130-450); RED BLOOD COUNT 3.48 10^6/uL (4.20-5.40); RED CELL DISTRIBUTION WIDTH 17.5 % (12.0-15.0); WHITE BLOOD COUNT 8.1 x10^3/uL (4.8-10.8)
[2017-02-23 19:15] LABS: CALCIUM 9.1 mg/dL (8.5-10.3); CREATININE 0.9 mg/dL (0.4-1.0)
== END 2017-02-23 08:01 | disposition home or self-care (01) ==
LOC: LAB.WCP 08:00
PROVIDERS: ATTEND Physician Assistant Medical
DX: J98.4 Other disorders of lung (principal); D62 Acute posthemorrhagic anemia
CPT/HCPCS: 36415; 80048; 82728; 85025

== ENCOUNTER 2017-03-23 14:20 | Outpatient (CLI) | payer MEDICARE, BC, OTHER ==
[2017-03-23 19:03] LABS: BASOPHILS # (AUTO) 0.1 10^3/uL (0.0-0.1); BASOPHILS % (AUTO) 0.7 %; EOSINOPHILS # (AUTO) 0.1 10^3/uL (0.0-0.7); EOSINOPHILS % (AUTO) 0.7 %; LYMPHOCYTES # (AUTO) 2.6 10^3/uL (1.5-3.5); LYMPHOCYTES % (AUTO) 32.4 %; MEAN CORPUSCULAR HEMOGLOBIN 30.9 pg (27.0-31.0); MEAN CORPUSCULAR HGB CONC 31.7 g/dL (32.0-36.0); MEAN CORPUSCULAR VOLUME 97.6 fL (81.0-99.0); MEAN PLATELET VOLUME 12.8 fL (7.9-10.8); MONOCYTES # (AUTO) 0.8 10^3/uL (0.0-1.0); MONOCYTES % (AUTO) 10.5 %; NEUTROPHILS # (AUTO) 4.5 10^3/uL (1.5-6.6); NEUTROPHILS % (AUTO) 55.7 %; PLT - PLATELET COUNT 246 10^3/uL (130-450); RED BLOOD COUNT 3.87 10^6/uL (4.20-5.40); RED CELL DISTRIBUTION WIDTH 16.9 % (12.0-15.0)
[2017-03-23 19:12] LABS: CALCIUM 9.3 mg/dL (8.5-10.3); CREATININE 0.8 mg/dL (0.4-1.0)
== END 2017-03-23 14:21 | disposition home or self-care (01) ==
LOC: LAB.WCP 14:20
PROVIDERS: ATTEND Physician Assistant Medical
DX: J98.4 Other disorders of lung (principal); D62 Acute posthemorrhagic anemia
CPT/HCPCS: 36415; 80048; 82728; 85025

== ENCOUNTER 2017-05-04 14:46 | Outpatient (CLI) | payer MEDICARE, BC, OTHER ==
[2017-05-04] MEDS ORDERED: IOPAMIDOL-300 100 ML VIAL IVP ONE ×2 (14:47→16:17)
[2017-05-04 15:07] LABS: CALCIUM 8.9 mg/dL (8.5-10.3); CREATININE 0.8 mg/dL (0.4-1.0)
[2017-05-04] MEDS ORDERED: IOPAMIDOL-300 100 ML VIAL ONE (16:09)
--- NOTE | 2017-05-04 19:10 | CT Report ---
EXAM: CT CHEST EXAM DATE: 05/04/2017 04:09 PM. CLINICAL HISTORY: Pulmonary nodule. COMPARISONS: 09/19/2016, 08/01/2010. TECHNIQUE: Routine helical CT imaging was performed through the chest. IV contrast: 80 cc Isovue 300. Reconstructions: Coronal and sagittal. In accordance with CT protocol optimization, one or more of the following dose reduction techniques w ere utilized for this exam: automated exposure control, adjustment of mA and/or KV based on patient s ize, or use of iterative reconstructive technique. FINDINGS: Lungs/Pleura: There is a stable 0.6 cm nodular density within the left upper lobe (image 14 series 4) . There is a stable 0.8 cm nodular density within the left upper lobe (image 18). There is a stable 0 .2 cm juxta fissural nodule within the right anterior chest (image 34). No suspicious new nodules are seen. No acute pulmonary process. There is no evidence of consolidation or effusion. There is underlying ce ntrilobular emphysema. No focal central airway abnormalities are seen. There is no evidence of pneumo thorax. Mediastinum: Heart size is within normal limits. There is thoracic aortic tortuosity. There are no en larged axillary, supraclavicular, mediastinal, or hilar lymph nodes. Bones: There are remote right-sided rib fractures. Remote sternal fracture. There is scoliotic curvat ure of the thoracolumbar spine. There are chronic-appearing compression fractures of the T8 and T10 v ertebral bodies. No acute bony abnormalities are seen. Visualized Abdomen: Unremarkable. Other: None. IMPRESSION: 1. Stable nodular densities within the lungs. No new lung nodules are seen. 2. There is emphysema. 3. No acute pulmonary process. 4. Normal heart size. 5. There are remote rib, sternal, and thoracic spine fractures. No clearly acute bony abnormalities a re seen. [facility] Referring Provider Line: [phone] SITE ID: [id number]
== END 2017-05-04 14:47 | disposition home or self-care (01) ==
LOC: LAB 14:46 → DI 14:47
PROVIDERS: ATTEND Family Medicine
DX: R91.8 Other nonspecific abnormal finding of lung field (principal); J43.9 Emphysema, unspecified; I10 Essential (primary) hypertension
CPT/HCPCS: 36415; 71260; 80048; Q9967

== ENCOUNTER 2017-11-16 13:57 | Outpatient (CLI) | payer MEDICARE, BC, OTHER ==
[~2017-11-16 13:57] MED LIST: SODIUM CHLORIDE FLUSH 0.9% 10 ML SYRINGE ONE
--- NOTE | 2017-11-19 14:15 | Mammography Report ---
Reason: SCREEN w KEN Procedure Date: 11/16/2017 Accession Number: [id number] / [id number] Procedure: REBEKAH - Screening Mammo w/Ken CPT Code: FULL RESULT: EXAM: Screening Mammo w/Ken DATE: 11/16/2017 2:38 PM CLINICAL HISTORY: Routine screening. Prior benign right breast biopsy. TECHNIQUE: Bilateral CC and MLO views were obtained. COMPARISON: 09/04/2014, 06/14/2012, 07/18/2013 FINDINGS: There are scattered fibroglandular densities. There is been no significant interval change No suspicious masses, clustered microcalcifications, or regions of architectural distortion are identified. Scattered benign-appearing calcifications are stable. IMPRESSION: Benign findings RECOMMENDATION: Routine annual screening unless otherwise clinically indicated. BIRADS CATEGORY 2: Benign findings STANDARD QUALIFYING STATEMENTS: 1. This examination was not reviewed with the aid of Computer-Aided Detection (CAD). 2. A negative or benign imaging report should not delay biopsy if clinically suspicious findings are present. Consider surgical consultation if warrented. More than 5% of cancers are not identified by imaging. 3. Dense breasts may obscure an underlying neoplasm. 4. This examination was reviewed the aid of 3D breast imaging (tomosynthesis).
== END 2017-11-16 13:58 | disposition home or self-care (01) ==
LOC: DI 13:57
DX: Z12.31 Encounter for screening mammogram for malignant neoplasm of breast (principal)
CPT/HCPCS: 77063; 77067

== ENCOUNTER 2018-02-01 08:00 | Outpatient (CLI) | payer MEDICARE, BC, OTHER ==
[2018-02-01 19:04] LABS: BASOPHILS % (AUTO) 0.5 %; EOSINOPHILS % (AUTO) 0.4 %; HGB - HEMOGLOBIN 12.6 g/dL (12.0-16.0); LYMPHOCYTES # (AUTO) 2.1 10^3/uL (1.5-3.5); LYMPHOCYTES % (AUTO) 29.8 %; MEAN CORPUSCULAR HEMOGLOBIN 34.4 pg (27.0-31.0); MEAN CORPUSCULAR HGB CONC 32.4 g/dL (32.0-36.0); MEAN CORPUSCULAR VOLUME 106.2 fL (81.0-99.0); MEAN PLATELET VOLUME 12.5 fL (7.9-10.8); MONOCYTES # (AUTO) 0.9 10^3/uL (0.0-1.0); NEUTROPHILS % (AUTO) 56.3 %; PLT - PLATELET COUNT 196 10^3/uL (130-450); RED BLOOD COUNT 3.67 10^6/uL (4.20-5.40); RED CELL DISTRIBUTION WIDTH 15.4 % (12.0-15.0); WHITE BLOOD COUNT 7.2 x10^3/uL (4.8-10.8)
[2018-02-01 19:34] LABS: PLATELET ESTIMATE, MANUAL NORMAL (130-450,000) (NORMAL); PLATELET MORPHOLOGY 1+ GIANT PLATELETS (NORMAL); RBC MORPHOLOGY (MULTIPLE) NORMAL APPEARANCE (NORMAL)
[2018-02-01 19:38] LABS: ALBUMIN 3.7 g/dL (3.2-5.5); ALBUMIN/GLOBULIN RATIO 1.1 (1.0-2.2); ALKALINE PHOSPHATASE 47 IU/L (42-121); ALT ALANINE AMINOTRANSFERASE 17 IU/L (10-60); AST ASPARTATE AMINOTRANSFERASE 28 IU/L (10-42); BILIRUBIN,TOTAL 0.8 mg/dL (0.2-1.0); BUN - BLOOD UREA NITROGEN 33 mg/dL (6-20); CALCIUM 9.1 mg/dL (8.5-10.3); CARBON DIOXIDE - CO2 30 mmol/L (21-32); CHLORIDE 94 mmol/L (101-111); CREATININE 0.9 mg/dL (0.4-1.0); GFR - MDRD 59 (>89); GLUCOSE 62 mg/dL (70-100); SODIUM 133 mmol/L (135-145); TOTAL PROTEIN 7.1 g/dL (6.7-8.2)
[2018-02-01 19:39] LABS: CRP - C-REACTIVE PROTEIN < 1.0 mg/dL (0-1.0)
== END 2018-02-01 23:59 | disposition home or self-care (01) ==
LOC: LAB.WCP 08:00
PROVIDERS: ATTEND Internal Medicine Rheumatology
DX: M06.00 Rheumatoid arthritis without rheumatoid factor, unspecified site (principal); Z79.899 Other long term (current) drug therapy
CPT/HCPCS: 36415; 80053; 85025; 85651; 86140

== ENCOUNTER 2018-09-13 14:43 | Outpatient (CLI) | payer MEDICARE, BC, OTHER | END 2018-09-13 23:59 | disposition home or self-care (01) | LOC: LAB.WCP 14:43 | PROVIDERS: ATTEND Family Medicine | DX: I10 Essential (primary) hypertension (principal) | CPT/HCPCS: 36415; 80048 ==

== ENCOUNTER 2018-09-20 08:00 | Outpatient (CLI) | payer MEDICARE, BC, OTHER ==
[2018-09-20 12:10] LABS: CALCIUM 9.6 mg/dL (8.5-10.3); CREATININE 0.9 mg/dL (0.4-1.0)
== END 2018-09-20 23:59 | disposition home or self-care (01) ==
LOC: LAB.WCP 08:00
PROVIDERS: ATTEND Family Medicine
DX: I10 Essential (primary) hypertension (principal)
CPT/HCPCS: 36415; 80048

== ENCOUNTER 2018-12-25 08:00 | Outpatient (CLI) | payer MEDICARE, BC, OTHER | END 2018-12-25 23:59 | disposition home or self-care (01) | LOC: LAB.R 08:00 | PROVIDERS: ATTEND Dentist Oral and Maxillofacial Surgery | DX: M86.10 Other acute osteomyelitis, unspecified site (principal) | CPT/HCPCS: 81599; 87070; 87077; 87186; 87205 ==

== ENCOUNTER 2019-02-17 14:55 | Outpatient (CLI) | payer MEDICARE, BC, OTHER ==
--- NOTE | 2019-02-18 07:12 | XRAY Report ---
Reason: COUGH Procedure Date: 02/17/2019 Accession Number: [id number] / [id number] Procedure: WCP - Chest 2 View X-Ray CPT Code: 51661 Final Report FULL RESULT: EXAM: CHEST RADIOGRAPHY EXAM DATE: 02/17/2019 02:55 PM. CLINICAL HISTORY: COUGH. COMPARISON: ABDOMEN ACUTE 01/11/2017 2:27 PM CHEST 2 VIEW PA/LAT 09/19/2016 2:49 PM CHEST W/ 05/04/2017 3:42 PM. TECHNIQUE: 2 views. FINDINGS: Lungs/Pleura: Hyperlucent lungs. On the lateral view there is retrocardiac infiltrate. Bilateral areas of increased interstitial markings. Bilateral upper lobe areas of scarring. Left upper lobe nodular density stable Mediastinum: Heart size within normal limits Other: Marked thoracic scoliosis. IMPRESSION: 1. Retrocardiac infiltrate. 2. COPD [facility]
== END 2019-02-17 23:59 | disposition home or self-care (01) ==
LOC: DI.WCP 14:55
PROVIDERS: ATTEND Nurse Practitioner Family
DX: R91.8 Other nonspecific abnormal finding of lung field (principal); J44.9 Chronic obstructive pulmonary disease, unspecified
CPT/HCPCS: 71046

== ENCOUNTER 2019-03-14 08:00 | Outpatient (CLI) | payer MEDICARE, BC, OTHER ==
[2019-03-14 19:07] LABS: BASOPHILS % (AUTO) 0.5 %; EOSINOPHILS # (AUTO) 0.1 10^3/uL (0.0-0.7); EOSINOPHILS % (AUTO) 1.4 %; HGB - HEMOGLOBIN 11.7 g/dL (12.0-16.0); LYMPHOCYTES # (AUTO) 1.6 10^3/uL (1.5-3.5); LYMPHOCYTES % (AUTO) 24.1 %; MEAN CORPUSCULAR HEMOGLOBIN 34.8 pg (27.0-31.0); MEAN CORPUSCULAR HGB CONC 33.1 g/dL (32.0-36.0); MEAN CORPUSCULAR VOLUME 105.1 fL (81.0-99.0); MEAN PLATELET VOLUME 13.3 fL (7.9-10.8); MONOCYTES # (AUTO) 0.9 10^3/uL (0.0-1.0); MONOCYTES % (AUTO) 13.6 %; NEUTROPHILS % (AUTO) 59.8 %; PLT - PLATELET COUNT 311 10^3/uL (130-450); RED BLOOD COUNT 3.36 10^6/uL (4.20-5.40); RED CELL DISTRIBUTION WIDTH 16.1 % (12.0-15.0); WHITE BLOOD COUNT 6.6 x10^3/uL (4.8-10.8)
[2019-03-14 19:26] LABS: ALBUMIN 3.5 g/dL (3.2-5.5); BILIRUBIN,TOTAL 0.8 mg/dL (0.2-1.0); CALCIUM 9.5 mg/dL (8.5-10.3); CREATININE 0.7 mg/dL (0.4-1.0); TOTAL PROTEIN 7.1 g/dL (6.7-8.2)
== END 2019-03-14 23:59 | disposition home or self-care (01) ==
LOC: LAB.WCP 08:00
PROVIDERS: ATTEND Family Medicine
DX: D62 Acute posthemorrhagic anemia (principal); M27.2 Inflammatory conditions of jaws; J44.9 Chronic obstructive pulmonary disease, unspecified; I10 Essential (primary) hypertension
CPT/HCPCS: 36415; 80053; 84443; 85025; 85651

== ENCOUNTER 2019-04-04 14:40 | Outpatient (CLI) | payer MEDICARE, BC, OTHER | END 2019-04-04 23:59 | disposition home or self-care (01) | LOC: LAB.WCP 14:40 | PROVIDERS: ATTEND Family Medicine | DX: E87.1 Hypo-osmolality and hyponatremia (principal) | CPT/HCPCS: 84300 ==

== ENCOUNTER 2019-05-01 08:00 | Outpatient (CLI) | payer MEDICARE, BC, OTHER ==
[2019-05-01 17:14] LABS: CALCIUM 9.5 mg/dL (8.5-10.3); CREATININE 0.8 mg/dL (0.4-1.0)
== END 2019-05-01 23:59 | disposition home or self-care (01) ==
LOC: LAB.WCP 08:00
PROVIDERS: ATTEND Family Medicine
DX: E87.1 Hypo-osmolality and hyponatremia (principal)
CPT/HCPCS: 36415; 80048

== ENCOUNTER 2019-09-03 15:00 | Outpatient (CLI) | payer MEDICARE, BC, OTHER ==
[2019-09-03 18:56] LABS: CALCIUM 9.5 mg/dL (8.5-10.3); CREATININE 0.7 mg/dL (0.4-1.0)
== END 2019-09-03 23:59 | disposition home or self-care (01) ==
LOC: LAB.WCP 15:00
PROVIDERS: ATTEND Nurse Practitioner Family
DX: E87.1 Hypo-osmolality and hyponatremia (principal)
CPT/HCPCS: 36415; 80048; 83930; 83935; 84300

== ENCOUNTER 2021-07-19 08:00 | Outpatient (CLI) | payer MEDICARE, BC, OTHER ==
[2021-07-19 18:05] LABS: BILIRUBIN,URINE NEGATIVE (NEGATIVE); GLUCOSE, URINE (UA) NEGATIVE (NEGATIVE); KETONES,URINE (UA) NEGATIVE (NEGATIVE); LEUKOCYTE ESTERASE, URINE NEGATIVE (NEGATIVE); NITRITE,URINE NEGATIVE (NEGATIVE); OCCULT BLOOD,URINE NEGATIVE (NEGATIVE); PH,URINE 7.5 PH (5.0-7.5); PROTEIN,URINE NEGATIVE (NEGATIVE); UROBILINOGEN,URINE 0.2 (NORMAL) E.U./dL (NORMAL)
[2021-07-19 18:11] LABS: CLARITY,URINE CLEAR (CLEAR)
[2021-07-19 18:49] LABS: BACTERIA,URINE Rare /HPF (None Seen); RBC,URINE 0-5 /HPF (0-5); SQUAMOUS EPITHELIAL CELL,UR RARE Squamous (<= Few); WBC,URINE 0-3 /HPF (0-5)
[2021-07-19 18:50] LABS: CRYSTALS,URINE 3-5 Uric Acid /LPF
== END 2021-07-19 23:59 | disposition home or self-care (01) ==
LOC: LAB.N 08:00
PROVIDERS: ATTEND Physician Assistant Medical
DX: R30.0 Dysuria (principal)
CPT/HCPCS: 81001; 87086

== ENCOUNTER 2021-08-19 17:34 | Inpatient (IN) | payer MEDICARE, BC, OTHER ==
--- NOTE | 2021-08-19 17:46 | ED Physician Documentation ---
PD HPI BACK PAIN - Stated complaint Stated Complaint: FALL - History obtained from History obtained from: Patient, EMS - Additional information Additional information: 89-year-old woman with history of single adrenal gland, osteoarthritis and rheumatoid arthritis. She was in her bathroom today and she slipped and fell backwards while trying to put her bra on. She the back of her head and back on the ground. No loss of consciousness. She states she is pain-free on arrival but has received 2 mg of morphine. 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 - Present Medications Home Medications: Ambulatory Orders Medication Instructions Recorded Confirmed Calcium Citrate/Vitamin D3 1 each PO DAILY 06/14/12 08/23/18 [Calcium Citrate - Vit D Tablet] Cranberry Fruit [Cranberry] 2 tab PO DAILY 06/14/12 08/23/18 Folic Acid 1 mg PO DAILY 06/14/12 08/23/18 Leucovorin Calcium 5 mg PO Q7D 06/14/12 08/23/18 Methotrexate [Methotrexate Sodium] 15 mg PO Q7D 06/14/12 08/23/18 inFLIXimab [Remicade] 400 mg IV Q30D 07/27/13 08/23/18 Denosumab [Prolia] 60 mg IM ONCE 07/10/14 08/23/18 Nebivolol HCl [Bystolic] 5 mg PO DAILY 03/19/15 08/23/18 Olmesartan/Hydrochlorothiazide 2 tab PO DAILY MDD 20/12.5 mg tabs 06/23/16 08/23/18 [Olmesartan-Hctz 20-12.5 mg Tab] Pantoprazole [Protonix] 40 mg PO DAILY 02/09/17 08/23/18 ondansetron HCL [Zofran] 4 mg PO TID PRN 02/09/17 08/23/18 Mupirocin 22 gm TP TID 01/11/18 08/23/18 - Allergies Allergies/Adverse Reactions: Allergies Allergy/AdvReac Type Severity Reaction Status Date / Time Penicillins Allergy Intermediate Rash Verified 06/23/16 16:11 Sulfa (Sulfonamide Allergy Intermediate Rash Verified 06/23/16 16:11 Antibiotics) Latex, Natural Rubber Allergy Rash Verified 01/12/17 14:33 - Social History Does the pt smoke?: No Smoking Status: Never smoker Does the pt drink ETOH?: No Does the pt have substance abuse?: No - Immunizations Immunizations are current?: Yes - POLST Patient has POLST: No PD ED PE NORMAL - Vitals Vital signs reviewed: Yes - General General: Alert and oriented X 3, No acute distress, Other (Initial room air sat in the 70s) - HEENT HEENT: PERRL, EOMI - Neck Neck: No bony TTP (But maintained in a c-collar pending imaging given advanced age) - Cardiac Cardiac: RRR, No murmur - Respiratory Respiratory: No respiratory distress, Other (Splinting her breaths a bit but grossly clear) - Abdomen Abdomen: Non tender - Back Back: No CVA TTP, No spinal TTP - Derm Derm: Normal color, Warm and dry - Extremities Extremities: No deformity, No tenderness to palpate, Normal ROM s pain, No edema, No calf tenderness / cord - Neuro Neuro: Alert and oriented X 3, No motor deficit, No sensory deficit, Normal s peech Results - Vitals Vitals: Vital Signs - 24 hr 08/19/21 08/19/21 08/19/21 18:59 19:30 21:03 Temperature 36.6 C Heart Rate 91 90 Respiratory 26 H 25 H Rate Blood Pressure 114/68 O2 Saturation 100 85 L 94 Oxygen O2 Source Nasal cannula Oxygen Flow Rate 3 - EKG (time done) 1909 Rate: Rate (enter#) (93) Rhythm: NSR (Looks like sinus with frequent PACs) [place]: Normal Intervals: Prolonged QT (Borderline prolonged), Other (Short RI interval) QRS: Normal Ischemia: Normal ST segments - Labs Labs: Laboratory Tests 08/19/21 08/19/21 08/19/21 18:30 18:30 18:30 WBC 16.0 H RBC 3.70 L Hgb 12.7 Hct 36.2 L MCV 97.8 MCH 34.3 H MCHC 35.1 RDW 13.9 Plt Count 176 MPV 10.2 Neut # (Auto) 14.7 H Lymph # (Auto) 0.4 L Gilchrist # (Auto) 0.6 Eos # (Auto) 0.0 Baso # (Auto) 0.1 Absolute Nucleated RBC 0.00 Nucleated RBC % 0.0 PT 13.7 H INR 1.2 D-Dimer Sodium 126 L Potassium 3.6 Chloride 87 L Carbon Dioxide 27 Anion Gap 12.0 BUN 20 Creatinine 0.7 Estimated GFR (MDRD) 79 L Glucose 138 H Calcium 9.1 Total Bilirubin 1.0 AST 47 H ALT 31 Alkaline Phosphatase 45 Total Protein 6.6 L Albumin 3.6 Globulin 3.0 Albumin/Globulin Ratio 1.2 08/19/21 18:30 WBC RBC Hgb Hct MCV MCH MCHC RDW Plt Count MPV Neut # (Auto) Lymph # (Auto) Gilchrist # (Auto) Eos # (Auto) Baso # (Auto) Absolute Nucleated RBC Nucleated RBC % PT INR D-Dimer > 1050.0 H Sodium Potassium Chloride Carbon Dioxide Anion Gap BUN Creatinine Estimated GFR (MDRD) Glucose Calcium Total Bilirubin AST ALT Alkaline Phosphatase Total Protein Albumin Globulin Albumin/Globulin Ratio - Rads (name of study) 1v cxr Radiology: EMP read contemporaneously (NAD) CT of the head, cervical spine, chest, and abdomen pelvis are negative for traumatic findings. Radiology: EMP read contemporaneously PD MEDICAL DECISION MAKING - ED course ED course: 89-year-old woman presents after fall in the bathroom hitting her back and head on the ground. There was no loss of consciousness. CT imaging of the head, C- spine, chest abdomen and pelvis was without traumatic finding. She did have some hypoxemia on arrival but had received morphine on the way here. Work-up also demonstrates moderate leukocytosis. She is hyponatremic but looking at old labs that is a chronic phenomenon. After arrival she developed some vertigo and nausea. Presume this is from head injury/concussion and she was administered some Zofran. The scans for trauma showed no evidence of rib fracture, significant head injury etc. We allow the morphine to wear off and she does not look like she was in pain and she was mentating well but the hypoxia was persistent and reproducible every time her supplemental oxygen turned off drifting down into the mid 80s on room air. As such D-dimer was checked and fairly positive so she went back over to CT for a contrast-enhanced study to evaluate for PE. On my view of this study, I do not see any PE, so I do not have a good explanation for the hypoxemia. Spoke with Dr. Carlson for admission at 10:24 PM. Departure - Departure Disposition: 66 [facility] DC/Xfer Clinical Impression: Hypoxemia Head injury Qualifiers: Encounter type: initial encounter Qualified Code(s): S09.90XA - Unspecified injury of head, initial encounter Back contusion Qualifiers: Encounter type: initial encounter Laterality: unspecified laterality Qualified Code(s): S20.229A - Contusion of unspecified back wall of thorax, initial encounter Condition: Serious
--- NOTE | 2021-08-19 18:22 | XRAY Report ---
PROCEDURE: Chest 1 View X-Ray INDICATIONS: Hypoxaemia TECHNIQUE: One view of the chest was acquired. COMPARISON: 04/24/2017 CT chest FINDINGS: Moderate to severe S-shaped scoliosis. Remote right posterior rib fracture. No acute osseous abnormal ity identified. No pleural effusion or acute air space opacity. Heart size appears to be normal. IMPRESSION: No acute cardiopulmonary process demonstrated radiographically. Reviewed by: Jacobo Renteria MD on 08/19/2021 6:21 PM PDT Approved by: Jacobo Renteria MD on 08/19/2021 6:21 PM PDT Station ID: [id number]
--- NOTE | 2021-08-19 18:31 | CT Report ---
PROCEDURE: HEAD WO INDICATIONS: Trauma TECHNIQUE: Noncontrast 4.5 mm thick angled axial sections acquired from the foramen magnum to the vertex. For r adiation dose reduction, the following was used: automated exposure control, adjustment of mA and/or kV according to patient size. COMPARISON: None. FINDINGS: Image quality: Excellent. CSF spaces: Basal cisterns are patent. No extra-axial fluid collections. Ventricles are normal in size and shape. Brain: Moderate global cerebral volume loss and moderate chronic micro-vascular ischemic changes. Sen escent bilateral basal ganglia calcifications, left greater than right. No midline shift. No intracr anial masses or hemorrhage. Gates-white matter interface is normal. Skull and face: Calvarium and visualized facial bones are intact, without suspicious lesions. Sinuses: Visualized sinuses and mastoids are clear. IMPRESSION: No acute finding. Moderate global cerebral volume loss and chronic microvascular ischemi c changes. Reviewed by: Jacobo Renteria MD on 08/19/2021 6:29 PM PDT Approved by: Jacobo Renteria MD on 08/19/2021 6:29 PM PDT Station ID: [id number]
[2021-08-19 18:34] LABS: BASOPHILS # (AUTO) 0.1 10^3/uL (0.0-0.1); BASOPHILS % (AUTO) 0.3 %; HCT - HEMATOCRIT 36.2 % (37.0-47.0); HGB - HEMOGLOBIN 12.7 g/dL (12.0-16.0); LYMPHOCYTES # (AUTO) 0.4 10^3/uL (1.5-3.5); LYMPHOCYTES % (AUTO) 2.6 %; MEAN CORPUSCULAR HEMOGLOBIN 34.3 pg (27.0-31.0); MEAN CORPUSCULAR HGB CONC 35.1 g/dL (32.0-36.0); MEAN CORPUSCULAR VOLUME 97.8 fL (81.0-99.0); MEAN PLATELET VOLUME 10.2 fL (7.9-10.8); MONOCYTES # (AUTO) 0.6 10^3/uL (0.0-1.0); MONOCYTES % (AUTO) 3.9 %; NEUTROPHILS # (AUTO) 14.7 10^3/uL (1.5-6.6); NEUTROPHILS % (AUTO) 91.8 %; PLT - PLATELET COUNT 176 10^3/uL (130-450); RED CELL DISTRIBUTION WIDTH 13.9 % (12.0-15.0)
--- NOTE | 2021-08-19 18:36 | CT Report ---
PROCEDURE: CHEST WO INDICATIONS: Trauma TECHNIQUE: Noncontrast 1mm axial images were acquired from the pulmonary apices to the posterior costophrenic an gles. Axial 5 mm soft tissue kernel reconstructions were performed as well as 8 mm axial MIP and cor onal and sagittal 5 mm reformations. For radiation dose reduction, the following was used: automate d exposure control, adjustment of mA and/or kV according to patient size. COMPARISON: 05/04/2017 CT chest FINDINGS: Remote thoracic compression fractures redemonstrated. There is no acute fracture identified. Severe s coliosis. No evidence of traumatic listhesis. Exaggerated thoracic kyphosis. Moderate to severe apica l predominant emphysematous changes. Chronic coarsened interlobular septal thickening. Dilated main p ulmonary trunks of the prior study. Non-aneurysmal thoracic aorta. No thoracic lymphadenopathy. No ac roger finding in the partially visualized unenhanced upper abdomen. IMPRESSION: No acute traumatic finding. Reviewed by: Jacobo Renteria MD on 08/19/2021 6:34 PM PDT Approved by: Jacobo Renteria MD on 08/19/2021 6:34 PM PDT Station ID: [id number]
--- NOTE | 2021-08-19 18:38 | CT Report ---
PROCEDURE: CERVICAL SPINE WO INDICATIONS: Trauma TECHNIQUE: Noncontrast 3 mm thick sections acquired from the skull base to the T4 level. Sagittal and coronal r eformats were then constructed. For radiation dose reduction, the following was used: automated exp osure control, adjustment of mA and/or kV according to patient size. COMPARISON: None. FINDINGS: Normal cervical spine vertebral body height and alignment. No fracture identified. No subluxation or dislocation. Facet joints appear to be congruent without asymmetric widening. Normal configuration of the craniocervical junction. IMPRESSION: No acute traumatic finding. Reviewed by: Jacobo Renteria MD on 08/19/2021 6:36 PM PDT Approved by: Jacobo Renteria MD on 08/19/2021 6:36 PM PDT Station ID: [id number]
--- NOTE | 2021-08-19 18:42 | CT Report ---
PROCEDURE: Abdomen/Pelvis WO INDICATIONS: trauma TECHNIQUE: Noncontrast 5 mm thick sections acquired from the diaphragms to the symphysis. 5 mm coronal and sagi ttal reformats were then performed. For radiation dose reduction, the following was used: automated exposure control, adjustment of mA and/or kV according to patient size. COMPARISON: None. FINDINGS: Image quality: Excellent. Severe scoliosis. No acute fracture identified. No free air or free fluid. No gross unenhanced CT evidence of acute traumatic solid organ injury. Oth erwise limited evaluation of the abdominal and pelvic viscera demonstrates no acute finding as it per tains to the provided indication. Severe aortic atherosclerosis. IMPRESSION: No acute traumatic finding. Reviewed by: Jacobo Renteria MD on 08/19/2021 6:40 PM PDT Approved by: Jacobo Renteria MD on 08/19/2021 6:40 PM PDT Station ID: [id number]
[2021-08-19] MEDS ORDERED: ONDANSETRON 4 MG/2 ML VIAL IVP STA (18:44)
[2021-08-19 18:47] LABS: ALBUMIN 3.6 g/dL (3.2-5.5); ALBUMIN/GLOBULIN RATIO 1.2 (1.0-2.2); CALCIUM 9.1 mg/dL (8.5-10.3); CREATININE 0.7 mg/dL (0.4-1.0); POTASSIUM 3.6 mmol/L (3.5-5.0); TOTAL PROTEIN 6.6 g/dL (6.7-8.2)
[2021-08-19 18:56] LABS: INR 1.2 (0.8-1.2); PT - PROTHROMBIN TIME 13.7 secs (9.9-12.6)
[2021-08-19] MEDS ORDERED: IBUPROFEN 400 MG TABLET PO STA (19:49)
[2021-08-19] MEDS ORDERED: ACETAMINOPHEN 325 MG TABLET PO STA (19:49)
[2021-08-19] MEDS ORDERED: iohexoL-300 100 ML VIAL ONE (21:12)
[2021-08-19] MEDS ORDERED: iohexoL-300 100 ML VIAL IVP ONE (22:00)
--- NOTE | 2021-08-19 22:29 | CT Report ---
PROCEDURE: ANGIO CHEST W/WO INDICATIONS: PE protocol, hypoxemia and high D-dimer CONTRAST: IV CONTRAST: Isovue 300 ml: 70 PO CONTRAST: *NO PO CONTRAST TECHNIQUE: After the administration of intravenous contrast, 2 mm axial images were acquired from the pulmonary apices to the posterior costophrenic angles during the arterial phase. In addition, 1 mm lung kernel and 5 mm soft tissue kernel reconstructions were performed. 3-dimensional coronal oblique maximum int ensity projection (MIP) reformats, 8 mm axial MIP, and 5 mm coronal and sagittal MPR reformats were t hen performed through the thorax. For radiation dose reduction, the following was used: automated exp osure control, adjustment of mA and/or kV according to patient size. COMPARISON: CT chest 07/20/2021 FINDINGS: Image quality: There is motion artifact limiting evaluation. Pulmonary arteries: Pulmonary arteries demonstrate no intraluminal filling defects to suggest centra l pulmonary embolism. Evaluation of subsegmental branches is limited by motion artifact. Lungs and pleura: There are moderate to severe centrilobular emphysematous changes bilaterally. Bila teral linear areas of scarring are demonstrated. Mild dependent atelectasis is also present. No acute consolidation. No pleural effusions or pneumothorax. Central and peripheral airways are patent. Mediastinum: Heart size is normal, without pericardial effusion. There is tortuosity of the thoracic aorta. The descending aorta demonstrates mild aneurysmal dilatation, measuring up to 3.3 cm proximal ly. At the level of the diaphragmatic hiatus, the aorta measures up to 3.0 cm. The visualized abdomin al aorta is normal in caliber but demonstrates diffuse atherosclerotic vascular calcification. No med iastinal or hilar adenopathy by size criteria. Esophagus is normal in caliber, without hiatal hernia . Bones and chest wall: There is an S-shaped scoliosis of the thoracolumbar spine redemonstrated with a dextroscoliosis of the thoracic spine and levoscoliosis of the lumbar spine. There is a severe comp ression fracture of the T8 vertebral body as well as moderate superior endplate compression fracture of the T10 vertebral body redemonstrated. There is a moderate superior endplate compression fracture of the T4 vertebral body which is new compared to the prior CT from 2018 but is of indeterminate acui ty. Sequelae of prior sternal fracture redemonstrated. A few healed right rib fractures also noted. N o axillary or supraclavicular adenopathy. The thyroid is normal in size and there are no incidental findings. Abdomen: Visualized upper abdomen demonstrates a few scattered surgical clips. The left kidney is at rophic in size superiorly. Prominent exophytic right renal cyst is noted. No hydronephrosis. IMPRESSION: 1. No evidence of central pulmonary embolism. 2. Moderate to severe centrilobular emphysematous changes. No acute consolidation. 3. Moderate superior endplate compression fracture of the T4 vertebral body of indeterminate acuity b ut new compared to the prior study from 2018. No definite retropulsed fragments in the spinal canal. Additional chronic compression fractures at T8 and T10 redemonstrated. Reviewed by: Robert Swain MD on 08/19/2021 10:28 PM PDT Approved by: Robert Swain MD on 08/19/2021 10:28 PM PDT Station ID: [id number]
[2021-08-19] MEDS ORDERED: ONDANSETRON 4 MG/2 ML VIAL IVP PRN (22:41)
[2021-08-19] MEDS ORDERED: SODIUM CHLORIDE FLUSH 0.9% 10 ML SYRINGE IVP PRN (22:41)
--- NOTE | 2021-08-19 22:49 | HISTORY & PHYSICAL EXAMINATION ---
Chief Complaint - Chief Complaint Chief Complaint: mechanical fall, hypoxia History of Present Illness - Admitted From Admitted From:: [facility] ED - History Obtained From Records Reviewed: yes History obtained from: patient Exam Limitations: hard of hearing - History of Present Illness HPI Comment/Other: Patient is an 89-year-old female with medical history significant for osteoarthritis, rheumatoid arthritis, hypertension and a single adrenal gland who presented to the ED after a mechanical fall. She slipped and fell backwards in the bathroom while trying to get dressed. She hit the back of her head and back when she fell. She denies loss of consciousness. Work-up in the ED included CT of the head and neck which were unremarkable. She was noted to be hypoxic with oxygen saturation as low as 77% on room air though no external signs of dyspnea. With supplemental oxygen her oxygen saturation improves into the 90s on 3L. A D-dimer level was greater than 1050. CT angiogram of the chest was negative for PE or pneumonia. Due to her oxygen requirement she was presented for continued management in the hospital. At bedside she appears comfortable. She denies pain. She also denies chest pain, dyspnea, abdominal pain, nausea, vomiting, fever or chills. 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 - Family & Social History Family History Comment/Other: None germane to patient's presentation - POLST Patient has POLST: No POLST Status: Full Code Meds/Allgy - Home Medications Home Medications: Ambulatory Orders Medication Instructions Recorded Confirmed Calcium Citrate/Vitamin D3 1 each PO DAILY 06/14/12 08/23/18 [Calcium Citrate - Vit D Tablet] Cranberry Fruit [Cranberry] 2 tab PO DAILY 06/14/12 08/23/18 Folic Acid 1 mg PO DAILY 06/14/12 08/23/18 Leucovorin Calcium 5 mg PO Q7D 06/14/12 08/23/18 Methotrexate [Methotrexate Sodium] 15 mg PO Q7D 06/14/12 08/23/18 inFLIXimab [Remicade] 400 mg IV Q30D 07/27/13 08/23/18 Denosumab [Prolia] 60 mg IM ONCE 07/10/14 08/23/18 Nebivolol HCl [Bystolic] 5 mg PO DAILY 03/19/15 08/23/18 Olmesartan/Hydrochlorothiazide 2 tab PO DAILY MDD 20/12.5 mg tabs 06/23/16 08/23/18 [Olmesartan-Hctz 20-12.5 mg Tab] Pantoprazole [Protonix] 40 mg PO DAILY 02/09/17 08/23/18 ondansetron HCL [Zofran] 4 mg PO TID PRN 02/09/17 08/23/18 Mupirocin 22 gm TP TID 01/11/18 08/23/18 - Allergies Allergies/Adverse Reactions: Allergies Allergy/AdvReac Type Severity Reaction Status Date / Time Penicillins Allergy Intermediate Rash Verified 06/23/16 16:11 Sulfa (Sulfonamide Allergy Intermediate Rash Verified 06/23/16 16:11 Antibiotics) Latex, Natural Rubber Allergy Rash Verified 01/12/17 14:33 Review of Systems - Other Findings Other Findings: A 12 point review of system was negative except was mentioned in the HPI. Prior Level of Functionality: Patient is fairly independent of activities of daily living. Exam - Vital Signs Vital Signs: Vital Signs x48h Temp Pulse Resp BP Pulse Ox 08/19/21 21:03 90 25 H 114/68 94 08/19/21 19:30 85 L 08/19/21 18:59 36.6 C 91 26 H 100 - Physical Exam General Appearance: positive: Alert, Mild distress Eyes Bilateral: positive: PERRL, EOMI ENT: positive: No signs of dehydration Neck: positive: No JVD, Trachea midline Respiratory: positive: Chest non-tender, No respiratory distress, Breath sounds nml. negative: Wheezes, Rales, Rhonchi Cardiovascular: positive: Regular rate & rhythm, No murmur Abdomen: positive: Non-tender, No organomegaly, Nml bowel sounds, No distention, Tenderness. negative: Guarding, Rebound Back: positive: Nml inspection Skin: positive: Warm, Dry, Other (bruises noted on lower extremities bilaterally) Extremities: positive: Non-tender, No pedal edema, Joint swelling (2/2 rheumatoid arthritis) Neurologic/Psychiatric: positive: Oriented x3, Mood/affect nml Conclusion/Plan - Problem List (1) Hypoxemia Conclusion/Plan: Etiology undetermined. CT angiogram of the chest was negative for PE, pneumonia or pulmonary edema. However moderate to severe centrilobular emphysematous changes noted (2) Fall Conclusion/Plan: T4 vertebral body fracture of indeterminate acuity was noted. Chronic compression fractures at T8 and T10 noted. CT head and neck was negative for any acute findings. (3) Leukocytosis Conclusion/Plan: WBC was 16. This is likely reactive. Will recheck with a.m. labs. (4) Rheumatoid arthritis Conclusion/Plan: On Remicade and methotrexate. (5) Hypertension Conclusion/Plan: On olmesartan/HCTZ. and bystolic - Lab Results Fish Bones: 08/19/21 18:30 08/19/21 18:30 Core Measures - Anticipated LOS I expect patient to be DC'd or transferred within 96 hours.: Yes - DVT/VTE - Prophylaxis VTE/DVT Device ordered at admit?: Yes
[2021-08-19] MEDS: SODIUM CHLORIDE 0.9% 1,000 ML IV SCH (23:50)
[2021-08-20] MEDS: ACETAMINOPHEN 325 MG TABLET PO PRN ×2 (00:03→12:26)
[2021-08-20] MEDS: SODIUM CHLORIDE FLUSH 0.9% 10 ML SYRINGE IVP SCH ×3 (00:04→18:21)
[2021-08-20 00:05] LABS: B. PARAPERTUSSIS- RESP PCR PAN NOT DETECTED; B. PERTUSSIS- RESP PCR PANEL NOT DETECTED; C. PNEUMONIAE- RESP PCR PANEL NOT DETECTED; CORONAVIRUS 229E-RESP PCR NOT DETECTED; CORONAVIRUS HKU1-RESP PCR NOT DETECTED; CORONAVIRUS NL63-RESP PCR NOT DETECTED; CORONAVIRUS OC43-RESP PCR NOT DETECTED; HUMAN METAPNEUMOVIRUS NOT DETECTED; INFLUENZA A- RESP PCR PANEL NOT DETECTED; INFLUENZA B - RESP PCR PANEL NOT DETECTED; M. PNEUMONIAE- RESP PCR PANEL NOT DETECTED; PARAINFLUENZA VIRUS 1 NOT DETECTED; PARAINFLUENZA VIRUS 2 NOT DETECTED; PARAINFLUENZA VIRUS 3 NOT DETECTED; PARAINFLUENZA VIRUS 4 NOT DETECTED; RHINOVIRUS/ENTEROVIRUS NOT DETECTED; RSV- RESP PCR PANEL NOT DETECTED; SARS-CoV-2 -RESP PCR PANEL NOT DETECTED
[2021-08-20 06:09] LABS: BASOPHILS % (AUTO) 0.2 %; HCT - HEMATOCRIT 30.7 % (37.0-47.0); HGB - HEMOGLOBIN 10.7 g/dL (12.0-16.0); LYMPHOCYTES % (AUTO) 5.5 %; MEAN CORPUSCULAR HEMOGLOBIN 34.4 pg (27.0-31.0); MEAN CORPUSCULAR HGB CONC 34.9 g/dL (32.0-36.0); MEAN CORPUSCULAR VOLUME 98.7 fL (81.0-99.0); MEAN PLATELET VOLUME 11.3 fL (7.9-10.8); MONOCYTES % (AUTO) 5.5 %; NEUTROPHILS % (AUTO) 88.3 %; PLT - PLATELET COUNT 141 10^3/uL (130-450); RED BLOOD COUNT 3.11 10^6/uL (4.20-5.40); RED CELL DISTRIBUTION WIDTH 14.1 % (12.0-15.0)
[2021-08-20 06:20] LABS: CALCIUM 8.1 mg/dL (8.5-10.3); CREATININE 0.8 mg/dL (0.4-1.0); POTASSIUM 3.3 mmol/L (3.5-5.0)
[2021-08-20 06:22] LABS: ABNORMAL LYMPHS % (MANUAL) 0 %
[2021-08-20 06:50] LABS: BAND NEUTROPHILS % (MANUAL) 1 %; DIFFERENTIAL COMMENT MANUAL DIFFERENTIAL; LYMPHOCYTES % (MANUAL) 8 %; MONOCYTES # (MANUAL) 0.8 10^3/uL (0.0-1.0); NEUTROPHILS # (MANUAL) 11.2 10^3/uL (1.5-6.6); PLATELET ESTIMATE, MANUAL NORMAL (130-450,000) (NORMAL); RBC MORPHOLOGY (MULTIPLE) NORMAL APPEARANCE (NORMAL)
[2021-08-20 08:42] LABS: ALBUMIN 2.8 g/dL (3.2-5.5); BILIRUBIN,DIRECT 0.2 mg/dL (0.1-0.5); BILIRUBIN,TOTAL 0.9 mg/dL (0.2-1.0); TOTAL PROTEIN 5.2 g/dL (6.7-8.2)
[2021-08-20] MEDS: SODIUM CHLORIDE 0.9% 1,000 ML IV SCH (09:48)
--- NOTE | 2021-08-20 15:27 | PHARMACY PROGRESS NOTE ---
- Best Possible Medication History Admit Date and Time: 08/19/21 2240 Processed by: Pharmacy Medication History completed: Yes Patient Interview: Pt unable to participate Secondary Source(s): Physician records, Pharmacy records, Insurance records As the person ultimately responsible for medication therapy, providers are able to order a medication from an existing home medication list in [facility] via the "Reconcile Routine" prior to Confirmation of that medication by nursing support worker. Such practice is discouraged except when the physician, in their clinical judgment, deems that a medical need exists for a medication without regard to previous use.
[2021-08-20] MEDS: HYDROCORTISONE 10 MG TABLET PO SCH (16:09)
[2021-08-20] MEDS: IPRATROPIUM/ALBUTEROL 3 ML NEB INH SCH ×2 (16:57→19:00)
[2021-08-20] MEDS ORDERED: POTASSIUM CHLORIDE 10 MEQ CAPSULE PO ONE (18:23)
--- NOTE | 2021-08-20 18:25 | PROVIDER PROGRESS NOTE ---
Assessment/Plan - Problem List (1) Acute respiratory failure with hypoxia Assessment/Plan: Today the daughter is at bedside and I am able to obtain detailed history about her medical conditions. The patient stopped smoking approximately 20 years ago and smoked half pack a day. 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 She has never had PFTs, never been told she had COPD. Her CT scan shows extensive emphysematous changes and her physical exam is consistent with a COPD exacerbation. Because of continued hypoxia and need for supplemental oxygen I will admit her to full inpatient status and treat the cause of her hypoxia (2) COPD with exacerbation Assessment/Plan: We will begin the patient on bronchodilators by nebulizer, Pulmicort via nebulizer twice daily, Singulair. Continue supplemental oxygen, target sats greater than 88%. Patient will need walking oximetry test on the day of [facility] She will need formal PFTs after discharge, done as an outpatient (3) Fall at home Qualifiers: Encounter type: subsequent encounter Qualified Code(s): W19.XXXD - Unspecified fall, subsequent encounter; Y92.009 - Unspecified place in un specified non-institutional (private) residence as the place of occurrence of the external cause Assessment/Plan: The patient claims she simply lost her balance as she was turning while dressing/putting on her bra. 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 Will check orthostatic vital signs. Will request physical therapy evaluation for balance and gait. I have recommended that she have a bath aide or someone assist her after she gets out of the shower. Social work and logistics loss prevention manager have always ready advised the daughter of this. Will adjust the treatment for her adrenal insufficiency (see below) (4) Sternal pain Assessment/Plan: She did not have this yesterday, the daughter says this is a new complaint today. This suggest that it was from her jarring blow that occurred when she fell at home. 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 Will stop that and give Cortef 10 mg twice daily. Follow electrolytes (8) Compression fracture of thoracic vertebra Assessment/Plan: The T4 fracture age is unknown, sometime after 2018 according to imaging. She has had prior compression fractures of the other compressed thoracic vertebrae. She has no pain in the spine (9) Hyponatremia Assessment/Plan: This is likely from her adrenal insufficiency. I suspect this led to the fall as well. Will continue with gentle IV saline hydration. Follow BMP daily. Start Cortef daily. She may need a salt tablet daily started as (10) Hypokalemia Assessment/Plan: This is likely related to her being on HCTZ as one of her blood pressure meds. It may be related to her adrenal insufficiency and also from poor p.o. intake. We will give potassium replacement. Follow BMP daily (11) Hypertension Assessment/Plan: Patient is on a beta-kesha and a combination ARB/HCTZ. We will use a beta-kesha that is beta-1 selective (Toprol XL) given the COPD and stop the nadolol. Will not give the EDMUNDO containing HCTZ, since she is hyponatremic and probably volume depleted. Check orthostatic vital signs to see if a second blood pressure med is even needed. (12) Prerenal azotemia Assessment/Plan: This suggest that she has hypovolemic hyponatremia and that she may have been orthostatic leading to the fall. Continue with gentle IV saline hydration. We will permanently stop her blood pressure med that contains HCTZ Follow BMP daily (13) Elevated LFTs Assessment/Plan: Mild increase of AST noted at admission, today both AST and ALT are elevated. Etiology is not clear, there is no alk phos elevation to think of obstructive problem. Possibly she has hepatic bruise. There is no history of excessive alcohol use We will continue to follow LFTs daily. Avoid hepatotoxins - Current Meds Current Meds: Current Medications Generic Name Dose Route Start Last Admin Trade Name Freq PRN Reason Stop Dose Admin Acetaminophen 650 mg 08/19/21 22:41 08/20/21 12:26 Acetaminophen 325 Mg Tablet PO 650 mg Q4HR PRN Administration Pain 1 to 4, or Fever Albuterol/Ipratropium 3 ml 08/20/21 15:57 08/20/21 16:57 Ipratropium/Albuterol 3 Ml Neb INH 3 ml RTQID BHARATI Administration Hydrocortisone 10 mg 08/20/21 16:00 08/20/21 16:09 Hydrocortisone 10 Mg Tablet PO 10 mg DAILYWM BHARATI Administration Sodium Chloride 1,000 mls @ 100 mls/hr 08/19/21 23:00 08/20/21 09:48 Normal Saline 0.9% IV 100 mls/hr .Q10H BHARATI Administration Sodium Chloride 10 ml 08/20/21 01:00 08/20/21 18:21 Sodium Chloride Flush 0.9% 10 Ml Syringe IVP Not Given 0100,0900,1700 BHARATI - Lab Result Fish Bone Diagrams: 08/20/21 05:39 08/20/21 05:39 - Additional Planning My Orders: My Active Orders 08/20/21 Evaluate and Treat PT [PT] Routine 08/20/21 08:26 Orthostatic [Vital Signs - Orthostatic] [RC] QSHIFT 08/20/21 15:57 Nebulizer/MDI Tx. [RC] QID Resp Teach Nebulizer/MDI [RC] .ONCE Ipratropium/Albuterol [Duoneb] 3 ml INH RTQID 08/20/21 15:59 Miscellaenous Nursing Order [RC] ONCE 08/20/21 16:00 Hydrocortisone [Cortef] 10 mg PO DAILYWM 08/20/21 16:54 Lidocaine Patch 5% [Lidoderm Patch] 1 patch TOP DAILY PRN 08/20/21 17:00 Budesonide [Pulmicort] 0.5 mg INH RTBID 08/20/21 18:23 Potassium Chloride [Micro-K] 30 meq PO ONCE ONE 08/20/21 21:00 Montelukast [Singulair] 10 mg PO QPM 08/21/21 09:00 Folic Acid 1 mg PO DAILY Metoprolol Succinate [Toprol Xl] 25 mg PO DAILY 08/24/21 09:00 Methotrexate [Methotrexate Sodium] 15 mg PO We@0900 Additional Planning Notes: Attestation: The patient is expected to be discharged or transferred to another facility within 96 hours: Yes. Subjective - Subjective Patient Reports: Chest Pain (Describes pleuritic anterior chest pain and says that it is tender over her lower sternum. Daughter is at bedside and says this is new symptom starting today) Objective Vital Signs: Vital Signs - 24 hr 08/19/21 08/19/21 08/19/21 18:59 19:30 21:03 Temperature 36.6 C Heart Rate 91 90 Heart Rate [ Brachial] Respiratory 26 H 25 H Rate Blood Pressure 114/68 Blood Pressure [Left Brachial artery] Blood Pressure [Right Brachial artery] O2 Saturation 100 85 L 94 O2 Saturation [ With Activity] O2 Saturation [ Without Activity] 08/20/21 08/20/21 08/20/21 00:00 06:22 08:15 Temperature 36.3 C L 97.2 C H 36.2 C L Heart Rate Heart Rate [ 87 78 74 Brachial] Respiratory 20 18 20 Rate Blood Pressure Blood Pressure 124/70 125/86 H [Left Brachial artery] Blood Pressure 139/70 H [Right Brachial artery] O2 Saturation 96 96 100 O2 Saturation [ With Activity] O2 Saturation [ Without Activity] 08/20/21 08/20/21 08/20/21 10:45 16:20 16:57 Temperature 36.4 C L Heart Rate 78 Heart Rate [ 66 Brachial] Respiratory 19 18 Rate Blood Pressure Blood Pressure [Left Brachial artery] Blood Pressure 126/56 L [Right Brachial artery] O2 Saturation 97 O2 Saturation [ 86 L With Activity] O2 Saturation [ 98 Without Activity] Oxygen O2 Source [With Activity] Nasal cannula O2 Source [Without Activity] Nasal cannula O2 Source Nasal cannula Oxygen Flow Rate 3 I&O (Last 24 Hrs): Intake and Output Totals x24h 08/18/21 08/19/21 08/20/21 23:59 23:59 23:59 Intake Total 1816.667 Balance 1816.667 General: Alert, Oriented x3 HEENT: Mucous membr. moist/pink, Other (GHOH and poor vision R eye) Neck: Supple, No JVD Neuro: Alert, Non Focal Cardiovascular: Regular rate, No murmurs Respiratory: Wheezes (posteriorly in all lung alejandro), Other (Increased AP diam. Prolonged exp phase) Abdomen: Normal bowel sounds, Soft Extremities: No edema, Other (Marked deformities of rheumatoid arthritis of her fingers and her toes) - Results Results: Laboratory Results WBC 13.0 x10^3/uL (4.8-10.8) H 08/20/21 05:39 RBC 3.11 10^6/uL (4.20-5.40) L 08/20/21 05:39 Hgb 10.7 g/dL (12.0-16.0) L 08/20/21 05:39 Hct 30.7 % (37.0-47.0) L 08/20/21 05:39 MCV 98.7 fL (81.0-99.0) 08/20/21 05:39 MCH 34.4 pg (27.0-31.0) H 08/20/21 05:39 MCHC 34.9 g/dL (32.0-36.0) 08/20/21 05:39 RDW 14.1 % (12.0-15.0) 08/20/21 05:39 Plt Count 141 10^3/uL (130-450) 08/20/21 05:39 MPV 11.3 fL (7.9-10.8) H 08/20/21 05:39 Neut # (Auto) Not Reportable 08/20/21 05:39 Lymph # (Auto) Not Reportable 08/20/21 05:39 [place] # (Auto) Not Reportable 08/20/21 05:39 Eos # (Auto) Not Reportable 08/20/21 05:39 Baso # (Auto) Not Reportable 08/20/21 05:39 Absolute Nucleated RBC Not Reportable 08/20/21 05:39 Total Counted 100 08/20/21 05:39 Band Neuts % (Manual) 1 % (0-10) 08/20/21 05:39 Abnorm Lymph % (Manual) 0 % 08/20/21 05:39 Nucleated RBC % Not Reportable 08/20/21 05:39 Neutrophils # (Manual) 11.2 10^3/uL (1.5-6.6) H 08/20/21 05:39 Lymphocytes # (Manual) 1.0 10^3/uL (1.5-3.5) L 08/20/21 05:39 Monocytes # (Manual) 0.8 10^3/uL (0.0-1.0) 08/20/21 05:39 Eosinophils # (Manual) 0.0 10^3/uL (0-0.7) 08/20/21 05:39 Basophils # (Manual) 0.0 10^3/uL (0-0.1) 08/20/21 05:39 Differential Comment MANUAL DIFFERENTIAL 08/20/21 05:39 Platelet Estimate NORMAL (130-450,000) (NORMAL) 08/20/21 05:39 RBC Morph Micro Appear NORMAL APPEARANCE (NORMAL) 08/20/21 05:39 PT 13.7 secs (9.9-12.6) H 08/19/21 18:30 INR 1.2 (0.8-1.2) 08/19/21 18:30 D-Dimer > 1050.0 ng/mL (200.0-255.0) H 08/19/21 18:30 Sodium 128 mmol/L (135-145) L 08/20/21 05:39 Potassium 3.3 mmol/L (3.5-5.0) L 08/20/21 05:39 Chloride 93 mmol/L (101-111) L 08/20/21 05:39 Carbon Dioxide 27 mmol/L (21-32) 08/20/21 05:39 Anion Gap 8.0 (6-13) 08/20/21 05:39 BUN 21 mg/dL (6-20) H 08/20/21 05:39 Creatinine 0.8 mg/dL (0.4-1.0) 08/20/21 05:39 Estimated GFR (MDRD) 68 (>89) L 08/20/21 05:39 Glucose 104 mg/dL (70-100) H 08/20/21 05:39 Calcium 8.1 mg/dL (8.5-10.3) L 08/20/21 05:39 Total Bilirubin 0.9 mg/dL (0.2-1.0) 08/20/21 05:39 Direct Bilirubin 0.2 mg/dL (0.1-0.5) 08/20/21 05:39 GGT 36 IU/L (8-38) 08/20/21 11:51 AST 137 IU/L (10-42) H 08/20/21 05:39 ALT 102 IU/L (10-60) H 08/20/21 05:39 Alkaline Phosphatase 45 IU/L (42-121) 08/20/21 05:39 Ammonia 11.0 umol/L (7-35) 08/20/21 11:51 Total Protein 5.2 g/dL (6.7-8.2) L 08/20/21 05:39 Albumin 2.8 g/dL (3.2-5.5) L 08/20/21 05:39 Globulin 2.4 g/dL (2.1-4.2) 08/20/21 05:39 Albumin/Globulin Ratio 1.2 (1.0-2.2) 08/19/21 18:30 Nasal Adenovirus (PCR) NOT DETECTED 08/19/21 23:08 Nasal B. parapertussis DNA (PCR) NOT DETECTED 08/19/21 23:08 Nasal Coronavir 229E PCR NOT DETECTED 08/19/21 23:08 Nasal Coronavir HKU1 PCR NOT DETECTED 08/19/21 23:08 Nasal Coronavir NL63 PCR NOT DETECTED 08/19/21 23:08 Nasal Coronavir OC43 PCR NOT DETECTED 08/19/21 23:08 Nasal Enterovir/Rhinovir PCR NOT DETECTED 08/19/21 23:08 Nasal Influenza B PCR NOT DETECTED 08/19/21 23:08 Nasal Influenza A PCR NOT DETECTED 08/19/21 23:08 Nasal Parainfluen 1 PCR NOT DETECTED 08/19/21 23:08 Nasal Parainfluen 2 PCR NOT DETECTED 08/19/21 23:08 Nasal Parainfluen 3 PCR NOT DETECTED 08/19/21 23:08 Nasal Parainfluen 4 PCR NOT DETECTED 08/19/21 23:08 Nasal RSV (PCR) NOT DETECTED 08/19/21 23:08 Nasal B.pertussis DNA PCR NOT DETECTED 08/19/21 23:08 Nasal C.pneumoniae (PCR) NOT DETECTED 08/19/21 23:08 [place] Human Metapneumo PCR NOT DETECTED 08/19/21 23:08 Nasal M.pneumoniae (PCR) NOT DETECTED 08/19/21 23:08 Nasal SARS-CoV-2 (PCR) NOT DETECTED 08/19/21 23:08
[2021-08-20] MEDS: LIDOCAINE PATCH 5% TOP PRN (18:38)
[2021-08-20] MEDS: BUDESONIDE 0.5 MG/2 ML NEB INH SCH (19:00)
[2021-08-20] MEDS: MONTELUKAST 10 MG TABLET PO SCH (21:00)
[2021-08-21] MEDS: SODIUM CHLORIDE 0.9% 1,000 ML IV SCH ×3 (00:47→21:15)
[2021-08-21] MEDS: SODIUM CHLORIDE FLUSH 0.9% 10 ML SYRINGE IVP SCH ×3 (00:48→16:32)
[2021-08-21] MEDS: IBUPROFEN 400 MG TABLET PO PRN ×2 (00:57→12:07)
[2021-08-21 06:57] LABS: BASOPHILS % (AUTO) 0.2 %; EOSINOPHILS # (AUTO) 0.1 10^3/uL (0.0-0.7); EOSINOPHILS % (AUTO) 0.5 %; HCT - HEMATOCRIT 30.8 % (37.0-47.0); HGB - HEMOGLOBIN 10.6 g/dL (12.0-16.0); LYMPHOCYTES % (AUTO) 10.2 %; MEAN CORPUSCULAR HEMOGLOBIN 34.2 pg (27.0-31.0); MEAN CORPUSCULAR HGB CONC 34.4 g/dL (32.0-36.0); MEAN CORPUSCULAR VOLUME 99.4 fL (81.0-99.0); MEAN PLATELET VOLUME 11.2 fL (7.9-10.8); MONOCYTES # (AUTO) 0.8 10^3/uL (0.0-1.0); MONOCYTES % (AUTO) 8.4 %; NEUTROPHILS # (AUTO) 7.7 10^3/uL (1.5-6.6); NEUTROPHILS % (AUTO) 80.3 %; NRBC ABSOLUTE COUNT (AUTO) 0.02 x10^3/uL; NUCLEATED RED BLOOD CELLS AUTO 0.2 /100WBC; PLT - PLATELET COUNT 128 10^3/uL (130-450); RED CELL DISTRIBUTION WIDTH 14.5 % (12.0-15.0); WHITE BLOOD COUNT 9.6 x10^3/uL (4.8-10.8)
[2021-08-21 07:07] LABS: ALBUMIN 2.9 g/dL (3.2-5.5); ALBUMIN/GLOBULIN RATIO 1.2 (1.0-2.2); BILIRUBIN,TOTAL 0.7 mg/dL (0.2-1.0); CALCIUM 8.1 mg/dL (8.5-10.3); CREATININE 0.8 mg/dL (0.4-1.0); POTASSIUM 4.4 mmol/L (3.5-5.0); TOTAL PROTEIN 5.4 g/dL (6.7-8.2)
[2021-08-21] MEDS: IPRATROPIUM/ALBUTEROL 3 ML NEB INH SCH ×4 (07:54→18:50)
[2021-08-21] MEDS: BUDESONIDE 0.5 MG/2 ML NEB INH SCH ×2 (07:54→18:50)
[2021-08-21] MEDS: FOLIC ACID 1 MG TABLET PO SCH (08:56)
[2021-08-21] MEDS: HYDROCORTISONE 10 MG TABLET PO SCH (08:56)
[2021-08-21] MEDS: METOPROLOL SUCCINATE 25 MG TABLET PO SCH (08:56)
[2021-08-21] MEDS: ACETAMINOPHEN 325 MG TABLET PO PRN ×2 (08:57→21:14)
[2021-08-21] MEDS: LIDOCAINE PATCH 5% TOP PRN (12:07)
--- NOTE | 2021-08-21 12:12 | PROVIDER PROGRESS NOTE ---
Assessment/Plan - Problem List (1) Acute respiratory failure with hypoxia Assessment/Plan: The daughter was at bedside and I was able to obtain detailed history about her medical conditions, yesterday and today. The patient stopped smoking approximately 20 years ago and smoked half pack a day. 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 She has never had PFTs, never been told she had COPD. Her CT scan showed moderate-severe emphysema and her physical exam is consistent with a COPD exacerbation. Because of continued hypoxia and need for supplemental oxygen, I admitted her from Observation to full inpatient status yesterday, and we are treating the cause of her hypoxia:COPD with exacerbation. (2) COPD with exacerbation Assessment/Plan: We have begun the patient on bronchodilators by nebulizer qid, Pulmicort via nebulizer twice daily, Singulair. She has noticed improvement after the neb ulizer treatments, so has the daughter Continue supplemental oxygen, target sats greater than 88%. Patient will need walking oximetry test on the day of [facility] She will need formal PFTs after discharge, done as an outpatient (3) Fall at home Qualifiers: Encounter type: subsequent encounter Qualified Code(s): W19.XXXD - Unspecified fall, subsequent encounter; Y92.009 - Unspecified place in unspecified non-institutional (private) residence as the place of occurrence of the external cause Assessment/Plan: The patient claims she simply lost her balance as she was turning while dressing/putting on her bra. Yesterday she said she fell backwards. Today she says she landed on her knees. The daughter did not see her fall, she heard the thud from several rooms away. 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 We are checking orthostatic vital signs and they are entirely normal. We have requested physical therapy evaluation for balance and gait. Today she reports that her knees are painful. We will do bilateral knee x-rays. I have recommended that she have a bath aide or someone assist her after she gets out of the shower. Social work and is manager have also already advised the daughter of this. (4) Sternal pain Assessment/Plan: She has had tenderness and pleuritic pain of the sternum, the daughter says this is a new complaint since the fall. This suggest that it was caused by a jarring blow that occurred when she fell at home. At admission she says she fell backwards. Today she says she fell on her knees, therefore may be she fell forward. Her CT was read as having an old sternal fracture. Will give pain meds of Tylenol, Motrin and a Lidocaine patch. I told her it could be painful for about a week. (5) Right hip pain Assessment/Plan: She has chronic bilateral hip pain from her RA and osteoarthritis but specifically the right hip hurts more than normal, according to the patient A lidocaine patch was ordered as requested by the patient (6) Odynophagia Assessment/Plan: The patient reports that pills are getting stuck, and today her nurse needed to crush them. Daughter says this is a new complaint, normally the patient can eat chicken and steaks and it never gets stuck. I reviewed the CT chest images, and there is some narrowing of the distal esophagus. Will request an overread by the radiologist. We may consider ordering a general surgery consult for doing an EGD for stretching the esophagus, however her thoracic anatomy has severe scoliosis and deformities and an EGD may be high risk. 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 here we have her on Cortef, for 3 days planned. 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 Will stop that and give Cortef 10 mg twice daily, stress doses, planned for 3 days. Follow electrolytes (9) Compression fracture of thoracic vertebra Assessment/Plan: The T4 fracture age is unknown, sometime after 2018 according to imaging. She has had prior compression fractures of the other compressed thoracic vertebrae. She has no pain in the spine (10) Hyponatremia Assessment/Plan: This is likely from her adrenal insufficiency. I suspect this may have contributed to the fall as well. Will continue with gentle IV saline hydration. Follow BMP daily. Start Cortef daily. She may need a salt tablet daily started as well (11) Hypokalemia Assessment/Plan: This is likely related to her being on HCTZ as one of her blood pressure meds. It may be related to her adrenal insufficiency and also from poor p.o. intake. We will give potassium replacement. Follow BMP daily (12) Hypertension Assessment/Plan: Patient is on a beta-kesha and a combination ARB/HCTZ. We will continue a (new) beta-kesha that is beta-1 selective (Toprol XL), given the COPD and stop the nadolol (and we do not carry nadolol on formulary). Will not give the EDMUNDO containing HCTZ, since she is hyponatremic and probably volume depleted. Will be checking orthostatic vital signs to see if a second blood pressure med is even needed. (13) Prerenal azotemia Assessment/Plan: This persists and suggests that she has hypovolemic hyponatremia, and that she may have been orthostatic leading to the fall. Continue with gentle IV saline hydration. We will permanently stop her blood pressure med that contains HCTZ Follow BMP daily (14) Abnormal transaminases Assessment/Plan: Mild increase of AST noted at admission. Yesterday both AST and ALT were elevated, now somewhat declining. Etiology is not clear, there is no alk phos elevation to think of obstructive problem. There is no history of excessive alcohol use Possibly she has hepatic bruising with her fall. Yesterday she said she fell backwards. Today she says she landed on her knees, so may have fallen forward. We will continue to follow LFTs daily. Avoid hepatotoxins - Current Meds Current Meds: Current Medications Generic Name Dose Route Start Last Admin Trade Name Freq PRN Reason Stop Dose Admin Acetaminophen 650 mg 08/19/21 22:41 08/21/21 08:57 Acetaminophen 325 Mg Tablet PO 650 mg Q4HR PRN Administration Pain 1 to 4, or Fever Albuterol/Ipratropium 3 ml 08/20/21 15:57 08/21/21 10:58 Ipratropium/Albuterol 3 Ml Neb INH 3 ml RTQID BHARATI Administration Budesonide 0.5 mg 08/20/21 17:00 08/21/21 07:54 Budesonide 0.5 Mg/2 Ml Neb INH 0.5 mg RTBID BHARATI Administration Folic Acid 1 mg 08/21/21 09:00 08/21/21 08:56 Folic Acid 1 Mg Tablet PO 1 mg DAILY BHARATI Administration Hydrocortisone 10 mg 08/20/21 16:00 08/21/21 08:56 Hydrocortisone 10 Mg Tablet PO 10 mg DAILYWM BHARATI Administration Sodium Chloride 1,000 mls @ 100 mls/hr 08/19/21 23:00 08/21/21 10:59 Normal Saline 0.9% IV 100 mls/hr .Q10H BHARATI Administration Ibuprofen 400 mg 08/20/21 00:40 08/21/21 12:07 Ibuprofen 400 Mg Tablet PO 400 mg Q6HR PRN Administration PAIN Lidocaine 1 patch 08/20/21 16:54 08/21/21 12:07 Lidocaine Patch 5% TOP 1 patch DAILY PRN Administration PAIN Metoprolol Succinate 25 mg 08/21/21 09:00 08/21/21 08:56 Metoprolol Succinate 25 Mg Tablet PO 25 mg DAILY BHARATI Administration Montelukast Sodium 10 mg 08/20/21 21:00 08/20/21 21:00 Montelukast 10 Mg Tablet PO 10 mg QPM BHARATI Administration Sodium Chloride 10 ml 08/20/21 01:00 08/21/21 08:57 Sodium Chloride Flush 0.9% 10 Ml Syringe IVP Not Given 0100,0900,1700 BHARATI - Lab Result Fish Bone Diagrams: 08/21/21 06:37 08/21/21 06:37 - Diagnostic Imaging Results Diagnostic Imaging Results: Final report reviewed - Additional Planning My Orders: My Active Orders 08/20/21 15:57 Nebulizer/MDI Tx. [RC] .QID Resp Teach Nebulizer/MDI [RC] .ONCE Ipratropium/Albuterol [Duoneb] 3 ml INH RTQID 08/20/21 16:00 Hydrocortisone [Cortef] 10 mg PO DAILYWM 08/20/21 16:54 Lidocaine Patch 5% [Lidoderm Patch] 1 patch TOP DAILY PRN 08/20/21 17:00 Budesonide [Pulmicort] 0.5 mg INH RTBID 08/20/21 21:00 Montelukast [Singulair] 10 mg PO QPM 08/21/21 09:00 Folic Acid 1 mg PO DAILY Metoprolol Succinate [Toprol Xl] 25 mg PO DAILY 08/24/21 09:00 Methotrexate [Methotrexate Sodium] 15 mg PO We@0900 Subjective - Subjective Patient Reports: Feeling Better (She feels better, more alert (daughter confirms this, daughter spent the night). She complains of pain in the sternum especially with deep breath. She also has pain in both knees, today says she "fell on her knees at home" (Yesterday she says she fell posteriorly, hit the back of her head & R hip)) Objective Vital Signs: Vital Signs - 24 hr 08/20/21 08/20/21 08/20/21 16:20 16:57 19:00 Temperature 36.4 C L Heart Rate 78 66 Heart Rate [ 66 Brachial] Respiratory 19 18 18 Rate Blood Pressure 126/56 L [Right Brachial artery] O2 Saturation 97 08/20/21 08/21/21 08/21/21 20:45 00:19 07:59 Temperature 36.3 C L 36.5 C Heart Rate 66 Heart Rate [ 75 47 L Brachial] Respiratory 16 16 19 Rate Blood Pressure 107/56 L 96/60 [Right Brachial artery] O2 Saturation 99 96 08/21/21 08/21/21 08/21/21 08:35 11:04 11:47 Temperature 36.6 C 36.6 C Heart Rate 80 Heart Rate [ 78 79 Brachial] Respiratory 20 24 22 Rate Blood Pressure 151/70 H [Right Brachial artery] O2 Saturation 99 97 Oxygen O2 Source [With Activity] Nasal cannula O2 Source [Without Activity] Nasal cannula O2 Source Nasal cannula Oxygen Flow Rate 3 I&O (Last 24 Hrs): Intake and Output Totals x24h 08/19/21 08/20/21 08/21/21 23:59 23:59 23:59 Intake Total 2966.667 1120 Balance 2966.667 1120 General: Alert, Oriented x3 HEENT: Mucous membr. moist/pink, Other (FOND DU LAC and poor vision) Neuro: Alert, Non Focal Cardiovascular: Regular rate, No murmurs Respiratory: Wheezes, Other (Prolonged expiratory phase, better air movement than yesterday) Abdomen: Normal bowel sounds, Soft Extremities: No edema, Other (Marked rheumatoid deformities of fingers and toes. No tenderness or swelling of the knees or around the knees.) - Results Results: Laboratory Results WBC 9.6 x10^3/uL (4.8-10.8) 08/21/21 06:37 RBC 3.10 10^6/uL (4.20-5.40) L 08/21/21 06:37 Hgb 10.6 g/dL (12.0-16.0) L 08/21/21 06:37 Hct 30.8 % (37.0-47.0) L 08/21/21 06:37 MCV 99.4 fL (81.0-99.0) H 08/21/21 06:37 MCH 34.2 pg (27.0-31.0) H 08/21/21 06:37 MCHC 34.4 g/dL (32.0-36.0) 08/21/21 06:37 RDW 14.5 % (12.0-15.0) 08/21/21 06:37 Plt Count 128 10^3/uL (130-450) L 08/21/21 06:37 MPV 11.2 fL (7.9-10.8) H 08/21/21 06:37 Neut # (Auto) 7.7 10^3/uL (1.5-6.6) H 08/21/21 06:37 Lymph # (Auto) 1.0 10^3/uL (1.5-3.5) L 08/21/21 06:37 [place] # (Auto) 0.8 10^3/uL (0.0-1.0) 08/21/21 06:37 Eos # (Auto) 0.1 10^3/uL (0.0-0.7) 08/21/21 06:37 Baso # (Auto) 0.0 10^3/uL (0.0-0.1) 08/21/21 06:37 Absolute Nucleated RBC 0.02 x10^3/uL 08/21/21 06:37 Total Counted 100 08/20/21 05:39 Band Neuts % (Manual) 1 % (0-10) 08/20/21 05:39 Abnorm Lymph % (Manual) 0 % 08/20/21 05:39 Nucleated RBC % 0.2 /100WBC 08/21/21 06:37 Neutrophils # (Manual) 11.2 10^3/uL (1.5-6.6) H 08/20/21 05:39 Lymphocytes # (Manual) 1.0 10^3/uL (1.5-3.5) L 08/20/21 05:39 Monocytes # (Manual) 0.8 10^3/uL (0.0-1.0) 08/20/21 05:39 Eosinophils # (Manual) 0.0 10^3/uL (0-0.7) 08/20/21 05:39 Basophils # (Manual) 0.0 10^3/uL (0-0.1) 08/20/21 05:39 Differential Comment MANUAL DIFFERENTIAL 08/20/21 05:39 Platelet Estimate NORMAL (130-450,000) (NORMAL) 08/20/21 05:39 RBC Morph Micro Appear NORMAL APPEARANCE (NORMAL) 08/20/21 05:39 PT 13.7 secs (9.9-12.6) H 08/19/21 18:30 INR 1.2 (0.8-1.2) 08/19/21 18:30 D-Dimer > 1050.0 ng/mL (200.0-255.0) H 08/19/21 18:30 Sodium 127 mmol/L (135-145) L 08/21/21 06:37 Potassium 4.4 mmol/L (3.5-5.0) 08/21/21 06:37 Chloride 96 mmol/L (101-111) L 08/21/21 06:37 Carbon Dioxide 26 mmol/L (21-32) 08/21/21 06:37 Anion Gap 5.0 (6-13) L 08/21/21 06:37 BUN 21 mg/dL (6-20) H 08/21/21 06:37 Creatinine 0.8 mg/dL (0.4-1.0) 08/21/21 06:37 Estimated GFR (MDRD) 68 (>89) L 08/21/21 06:37 Glucose 99 mg/dL (70-100) 08/21/21 06:37 Calcium 8.1 mg/dL (8.5-10.3) L 08/21/21 06:37 Total Bilirubin 0.7 mg/dL (0.2-1.0) 08/21/21 06:37 Direct Bilirubin 0.2 mg/dL (0.1-0.5) 08/20/21 05:39 GGT 36 IU/L (8-38) 08/20/21 11:51 AST 121 IU/L (10-42) H 08/21/21 06:37 ALT 115 IU/L (10-60) H 08/21/21 06:37 Alkaline Phosphatase 56 IU/L (42-121) 08/21/21 06:37 Ammonia 11.0 umol/L (7-35) 08/20/21 11:51 Total Protein 5.4 g/dL (6.7-8.2) L 08/21/21 06:37 Albumin 2.9 g/dL (3.2-5.5) L 08/21/21 06:37 Globulin 2.5 g/dL (2.1-4.2) 08/21/21 06:37 Albumin/Globulin Ratio 1.2 (1.0-2.2) 08/21/21 06:37 Nasal Adenovirus (PCR) NOT DETECTED 08/19/21 23:08 Nasal B. parapertussis DNA (PCR) NOT DETECTED 08/19/21 23:08 Nasal Coronavir 229E PCR NOT DETECTED 08/19/21 23:08 Nasal Coronavir HKU1 PCR NOT DETECTED 08/19/21 23:08 Nasal Coronavir NL63 PCR NOT DETECTED 08/19/21 23:08 Nasal Coronavir OC43 PCR NOT DETECTED 08/19/21 23:08 Nasal Enterovir/Rhinovir PCR NOT DETECTED 08/19/21 23:08 Nasal Influenza B PCR NOT DETECTED 08/19/21 23:08 Nasal Influenza A PCR NOT DETECTED 08/19/21 23:08 Nasal Parainfluen 1 PCR NOT DETECTED 08/19/21 23:08 Nasal Parainfluen 2 PCR NOT DETECTED 08/19/21 23:08 Nasal Parainfluen 3 PCR NOT DETECTED 08/19/21 23:08 Nasal Parainfluen 4 PCR NOT DETECTED 08/19/21 23:08 Nasal RSV (PCR) NOT DETECTED 08/19/21 23:08 Nasal B.pertussis DNA PCR NOT DETECTED 08/19/21 23:08 Nasal C.pneumoniae (PCR) NOT DETECTED 08/19/21 23:08 [place] Human Metapneumo PCR NOT DETECTED 08/19/21 23:08 Nasal M.pneumoniae (PCR) NOT DETECTED 08/19/21 23:08 Nasal SARS-CoV-2 (PCR) NOT DETECTED 08/19/21 23:08
--- NOTE | 2021-08-21 14:46 | XRAY Report ---
PROCEDURE: Knee 2 View BILAT INDICATIONS: fall at home on both knees TECHNIQUE: 2 views of the bilateral knee(s) were acquired. COMPARISON: None. FINDINGS: Bones:Generalized decreased osseous mineralization present. Joint space and narrowing with stippled i ntra-articular calcification consistent with chondrocalcinosis. Diffuse atherosclerotic vascular calc ification present. No joint effusions. Soft tissues: No joint effusion. No suspicious soft tissue calcifications. IMPRESSION: Osteopenia and arthritic changes without fracture or joint effusion Reviewed by: Sb Schneider MD on 08/21/2021 1:44 PM AKDT Approved by: Sb Schneider MD on 08/21/2021 1:44 PM AKDT Station ID: [id number]
[2021-08-21] MEDS: MONTELUKAST 10 MG TABLET PO SCH (21:15)
[2021-08-22] MEDS: SODIUM CHLORIDE FLUSH 0.9% 10 ML SYRINGE IVP SCH ×3 (01:00→20:45)
[2021-08-22 05:23] LABS: BASOPHILS % (AUTO) 0.3 %; HCT - HEMATOCRIT 32.3 % (37.0-47.0); HGB - HEMOGLOBIN 11.1 g/dL (12.0-16.0); LYMPHOCYTES % (AUTO) 7.6 %; MEAN CORPUSCULAR HEMOGLOBIN 34.6 pg (27.0-31.0); MEAN CORPUSCULAR HGB CONC 34.4 g/dL (32.0-36.0); MEAN CORPUSCULAR VOLUME 100.6 fL (81.0-99.0); MEAN PLATELET VOLUME 11.5 fL (7.9-10.8); MONOCYTES % (AUTO) 10.3 %; NEUTROPHILS % (AUTO) 80.2 %; PLT - PLATELET COUNT 125 10^3/uL (130-450); RED BLOOD COUNT 3.21 10^6/uL (4.20-5.40); RED CELL DISTRIBUTION WIDTH 14.6 % (12.0-15.0); WHITE BLOOD COUNT 10.5 x10^3/uL (4.8-10.8)
[2021-08-22 05:25] LABS: ABNORMAL LYMPHS % (MANUAL) 0 %; BAND NEUTROPHILS % (MANUAL) 0 %
[2021-08-22 05:51] LABS: DIFFERENTIAL COMMENT MANUAL DIFFERENTIAL; LYMPHOCYTES # (MANUAL) 0.3 10^3/uL (1.5-3.5); LYMPHOCYTES % (MANUAL) 3 %; MONOCYTES # (MANUAL) 0.9 10^3/uL (0.0-1.0); NEUTROPHILS # (MANUAL) 9.2 10^3/uL (1.5-6.6); PLATELET ESTIMATE, MANUAL NORMAL (130-450,000) (NORMAL); PLATELET MORPHOLOGY NORMAL APPEARANCE (NORMAL); RBC MORPHOLOGY (MULTIPLE) NORMAL APPEARANCE (NORMAL); WBC MORPHOLOGY (MULTIPLE) NORMAL APPEARANCE (NORMAL)
[2021-08-22] MEDS: BUDESONIDE 0.5 MG/2 ML NEB INH SCH ×2 (07:11→21:30)
[2021-08-22] MEDS: IPRATROPIUM/ALBUTEROL 3 ML NEB INH SCH ×4 (07:11→21:31)
[2021-08-22] MEDS: SODIUM CHLORIDE 0.9% 1,000 ML IV SCH (07:19)
[2021-08-22] MEDS: HYDROCORTISONE 10 MG TABLET PO SCH (07:50)
[2021-08-22] MEDS: IBUPROFEN 400 MG TABLET PO PRN (08:54)
[2021-08-22] MEDS: FOLIC ACID 1 MG TABLET PO SCH (08:54)
[2021-08-22] MEDS: METOPROLOL SUCCINATE 25 MG TABLET PO SCH (08:54)
[2021-08-22] MEDS: LIDOCAINE PATCH 5% TOP PRN (09:04)
[2021-08-22] MEDS ORDERED: SODIUM CHLORIDE 0.9% 1,000 ML IV SCH (10:58)
--- NOTE | 2021-08-22 10:59 | PROVIDER PROGRESS NOTE ---
Assessment/Plan - Problem List (1) Acute respiratory failure with hypoxia Assessment/Plan: When the daughter was at bedside, I was able to obtain detailed history about her medical conditions: The patient stopped smoking approximately 20 years ago and smoked half pack a day. 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 She has never had PFTs, never been told she had COPD. Her CT scan showed moderate-severe emphysema and her physical exam is consistent with a COPD exacerbation. Because of continued oxygen desaturation and need for supplemental oxygen, I admitted her from Observation to Inpatient status, and we are treating the cause of her hypoxia: COPD with exacerbation. (2) COPD with exacerbation Assessment/Plan: We have begun the patient on bronchodilators by nebulizer qid, Pulmicort via nebulizer twice daily, Singulair at . She has noticed improvement after the nebulizer treatments, so has the daughter.These are all new meds for her as she has never had PFTs, and never been told she had COPD. Continue supplemental oxygen, target sats greater than 88%. Patient will need walking oximetry test on the day of [facility] to see is she needs home O2. She will need formal PFTs after discharge, done as an outpatient (3) Fall at home Qualifiers: Encounter type: subsequent encounter Qualified Code(s): W19.XXXD - Unspe cified fall, subsequent encounter; Y92.009 - Unspecified place in unspecified non-institutional (private) residence as the place of occurrence of the external cause Assessment/Plan: The patient claims she simply lost her balance as she was turning while dressing/putting on her bra, and said she fell backwards. Yesterday she says she landed on her knees. The daughter did not see her fall, she heard the thud from several rooms away. 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 We are checking orthostatic vital signs and they are normal thus far. We have requested physical therapy evaluation for balance and gait. After she reported that her knees were painful, she had bilateral knee x-rays which showed no fracture, dislocation or fluid. I have recommended that she have a bath aide or someone assist her after she gets out of the shower. Social work and liner reroll tender have also already advised the daughter of this. (4) Sternal pain Assessment/Plan: She has had tenderness and pleuritic pain in the sternum, the daughter says this is a new complaint since the fall. This suggest that it was caused by a jarring blow that occurred when she fell at home. At admission she says she fell backwards. Now she says she fell on her knees, therefore maybe she fell forward and hit her chest. A CT chest was done at admission and was read as having an old sternal fracture. Will give pain meds of Tylenol, Motrin and a Lidocaine patch. I told her if bruised, it could be painful for about a week. (5) Right hip pain Assessment/Plan: She has chronic bilateral hip pain from her RA and osteoarthritis but specifically the right hip hurts more than normal, according to the patient A lidocaine patch was ordered as requested by the patient (6) Odynophagia Assessment/Plan: The patient reports that pills are getting stuck, and her nurse needed to crush them. Daughter says this is a new complaint since the fall, and that normally the patient can eat chicken and steaks and it never gets stuck. I reviewed the CT chest images, and there is some narrowing of the distal esophagus to my viewing. I tried to reach our in-house Radiologist to review that area, but there is no answer in the Radiology reading room today. We may consider ordering a general surgery consult for doing an EGD for stretching the esophagus, however her thoracic anatomy has severe scoliosis and deformities and an E[facility]. 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 Here we have her on Cortef. 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 We stopped that and started Cortef 10 mg twice daily, stress doses, planned for 3 days. Follow electrolytes daily. (9) Compression fracture of thoracic vertebra Assessment/Plan: The T4 fracture age is unknown, sometime after 2018 according to report. She has had prior compression fractures of othe thoracic vertebrae. She has no pain in the spine however. (10) Hyponatremia Assessment/Plan: This persists and suggests that she has hypovolemic hyponatremia. This is likely from her being on a diuretic and from adrenal insufficiency. I suspect this may have contributed to the fall as well. Will continue with gentle IV saline hydration. Follow BMP daily. We started Cortef daily. Today ordered a salt tablet daily as well (11) Hypokalemia Assessment/Plan: This is likely related to her being on HCTZ as one of her blood pressure meds. It may also be related to her adrenal insufficiency and also from poor p.o. intake. We will give potassium replacement. Follow BMP daily (12) Hypertension Assessment/Plan: Patient is on a beta-kesha and a combination ARB/HCTZ. We will continue a (new) beta-kesha that is beta-1 selective (Toprol XL), given the finding of COPD and stop the nadolol (and we do not carry nadolol on formulary). Will not give the EDMUNDO containing HCTZ, since she is hyponatremic and probably volume depleted. Will be checking orthostatic vital signs to see if a second blood pressure med is even needed. (13) Prerenal azotemia Assessment/Plan: This persists and suggests that she has hypovolemic hyponatremia, and that she may have been orthostatic leading to the fall. Continue with gentle IV saline hydration. We will permanently stop her blood pressure med that contains HCTZ Follow BMP daily (14) Abnormal transaminases Assessment/Plan: Mild increase of AST noted at admission. Then both AST and ALT were elevated, and are now somewhat declining. Etiology is not clear, there is no alk phos elevation to think of obstructive problem and no abdominal complaints (except "pills getting stuck"). There is no history of excessive alcohol use Possibly she had hepatic bruising with her fall. At admission she said she fell backwards. Yesterday she said she landed on her knees, so she may have fallen forward. We will continue to follow LFTs daily. Avoid hepatotoxins. - Current Meds Current Meds: Current Medications Generic Name Dose Route Start Last Admin Trade Name Freq PRN Reason Stop Dose Admin Acetaminophen 650 mg 08/19/21 22:41 08/21/21 21:14 Acetaminophen 325 Mg Tablet PO 650 mg Q4HR PRN Administration Pain 1 to 4, or Fever Albuterol/Ipratropium 3 ml 08/20/21 15:57 08/22/21 07:11 Ipratropium/Albuterol 3 Ml Neb INH 3 ml RTQID BHARATI Administration Budesonide 0.5 mg 08/20/21 17:00 08/22/21 07:11 Budesonide 0.5 Mg/2 Ml Neb INH 0.5 mg RTBID BHARATI Administration Folic Acid 1 mg 08/21/21 09:00 08/22/21 08:54 Folic Acid 1 Mg Tablet PO 1 mg DAILY BHARATI Administration Hydrocortisone 10 mg 08/20/21 16:00 08/22/21 07:50 Hydrocortisone 10 Mg Tablet PO 10 mg DAILYWM BHARATI Administration Ibuprofen 400 mg 08/20/21 00:40 08/22/21 08:54 Ibuprofen 400 Mg Tablet PO 400 mg Q6HR PRN Administration PAIN Lidocaine 1 patch 08/20/21 16:54 08/22/21 09:04 Lidocaine Patch 5% TOP 1 patch DAILY PRN Administration PAIN Metoprolol Succinate 25 mg 08/21/21 09:00 08/22/21 08:54 Metoprolol Succinate 25 Mg Tablet PO 25 mg DAILY BHARATI Administration Montelukast Sodium 10 mg 08/20/21 21:00 08/21/21 21:15 Montelukast 10 Mg Tablet PO 10 mg QPM BHARATI Administration Sodium Chloride 10 ml 08/20/21 01:00 08/22/21 08:54 Sodium Chloride Flush 0.9% 10 Ml Syringe IVP Not Given 0100,0900,1700 BHARATI - Lab Result Fish Bone Diagrams: 08/23/21 06:53 08/23/21 06:53 - Additional Planning My Orders: My Active Orders 08/21/21 13:42 Miscellaenous Nursing Order [RC] QSHIFT 08/22/21 10:58 Sodium Chloride 0.9% [Normal Saline 0.9%] 1,000 ml IV TKO 08/22/21 11:00 Losartan [Cozaar] 50 mg PO DAILY Pantoprazole [Protonix] 40 mg PO QDAC 08/22/21 12:00 Sodium Chloride [Salt Tab] 1 gm PO 1200 08/24/21 09:00 Methotrexate [Methotrexate Sodium] 15 mg PO We@0900 Subjective - Subjective Patient Reports: Resting Comfortably, No Complaints Nursing Reports: Other (She is afraid to stand up by herself (since the fall at home) and wants people "on both sides of her".) Objective Vital Signs: Vital Signs - 24 hr 08/21/21 08/21/21 08/21/21 11:04 11:47 15:10 Temperature 36.6 C Heart Rate 80 84 Heart Rate [ 79 Brachial] Respiratory 24 22 19 Rate Blood Pressure [Right Brachial artery] O2 Saturation 97 08/21/21 08/21/21 08/21/21 16:32 18:50 19:34 Temperature 36.7 C 36.9 C Heart Rate 73 Heart Rate [ 82 85 Brachial] Respiratory 16 18 18 Rate Blood Pressure 138/83 H 128/83 H [Right Brachial artery] O2 Saturation 100 94 08/22/21 08/22/21 08/22/21 02:46 07:14 07:59 Temperature 36.1 C L 36.6 C Heart Rate 74 Heart Rate [ 74 91 Brachial] Respiratory 21 18 20 Rate Blood Pressure 159/72 H 169/74 H [Right Brachial artery] O2 Saturation 96 97 Oxygen O2 Source [With Activity] Nasal cannula O2 Source [Without Activity] Nasal cannula O2 Source Nasal cannula Oxygen Flow Rate 3 I&O (Last 24 Hrs): Intake and Output Totals x24h 08/20/21 08/21/21 08/22/21 23:59 23:59 23:59 Intake Total 2966.667 2370 1100 Output Total 100 100 Balance 2966.667 2270 1000 General: Alert, Oriented x3, Other (Currentky sleeping, appears comfortable) HEENT: Atraumatic, PERRLA Neck: Supple, No JVD Neuro: Alert, Non Focal Cardiovascular: Regular rate, No murmurs Respiratory: No respiratory distress (with O2 via n.c. on), Other (Prolonged exp phase) Abdomen: Normal bowel sounds, Soft, No tenderness Extremities: No edema, Other (Has RA-type deformities of fingers and toes) - Results Results: Laboratory Results WBC 10.5 x10^3/uL (4.8-10.8) 08/22/21 05:01 RBC 3.21 10^6/uL (4.20-5.40) L 08/22/21 05:01 Hgb 11.1 g/dL (12.0-16.0) L 08/22/21 05:01 Hct 32.3 % (37.0-47.0) L 08/22/21 05:01 MCV 100.6 fL (81.0-99.0) H 08/22/21 05:01 MCH 34.6 pg (27.0-31.0) H 08/22/21 05:01 MCHC 34.4 g/dL (32.0-36.0) 08/22/21 05:01 RDW 14.6 % (12.0-15.0) 08/22/21 05:01 Plt Count 125 10^3/uL (130-450) L 08/22/21 05:01 MPV 11.5 fL (7.9-10.8) H 08/22/21 05:01 Neut # (Auto) Not Reportable 08/22/21 05:01 Lymph # (Auto) Not Reportable 08/22/21 05:01 [place] # (Auto) Not Reportable 08/22/21 05:01 Eos # (Auto) Not Reportable 08/22/21 05:01 Baso # (Auto) Not Reportable 08/22/21 05:01 Absolute Nucleated RBC Not Reportable 08/22/21 05:01 Total Counted 100 08/22/21 05:01 Band Neuts % (Manual) 0 % (0-10) 08/22/21 05:01 Abnorm Lymph % (Manual) 0 % 08/22/21 05:01 Nucleated RBC % Not Reportable 08/22/21 05:01 Neutrophils # (Manual) 9.2 10^3/uL (1.5-6.6) H 08/22/21 05:01 Lymphocytes # (Manual) 0.3 10^3/uL (1.5-3.5) L 08/22/21 05:01 Monocytes # (Manual) 0.9 10^3/uL (0.0-1.0) 08/22/21 05:01 Eosinophils # (Manual) 0.0 10^3/uL (0-0.7) 08/22/21 05:01 Basophils # (Manual) 0.0 10^3/uL (0-0.1) 08/22/21 05:01 Differential Comment MANUAL DIFFERENTIAL 08/22/21 05:01 WBC Morphology NORMAL APPEARANCE (NORMAL) 08/22/21 05:01 Platelet Estimate NORMAL (130-450,000) (NORMAL) 08/22/21 05:01 Platelet Morphology NORMAL APPEARANCE (NORMAL) 08/22/21 05:01 RBC Morph Micro Appear NORMAL APPEARANCE (NORMAL) 08/22/21 05:01 PT 13.7 secs (9.9-12.6) H 08/19/21 18:30 INR 1.2 (0.8-1.2) 08/19/21 18:30 D-Dimer > 1050.0 ng/mL (200.0-255.0) H 08/19/21 18:30 Sodium 127 mmol/L (135-145) L 08/21/21 06:37 Potassium 4.4 mmol/L (3.5-5.0) 08/21/21 06:37 Chloride 96 mmol/L (101-111) L 08/21/21 06:37 Carbon Dioxide 26 mmol/L (21-32) 08/21/21 06:37 Anion Gap 5.0 (6-13) L 08/21/21 06:37 BUN 21 mg/dL (6-20) H 08/21/21 06:37 Creatinine 0.8 mg/dL (0.4-1.0) 08/21/21 06:37 Estimated GFR (MDRD) 68 (>89) L 08/21/21 06:37 Glucose 99 mg/dL (70-100) 08/21/21 06:37 Calcium 8.1 mg/dL (8.5-10.3) L 08/21/21 06:37 Total Bilirubin 0.7 mg/dL (0.2-1.0) 08/21/21 06:37 Direct Bilirubin 0.2 mg/dL (0.1-0.5) 08/20/21 05:39 GGT 36 IU/L (8-38) 08/20/21 11:51 AST 121 IU/L (10-42) H 08/21/21 06:37 ALT 115 IU/L (10-60) H 08/21/21 06:37 Alkaline Phosphatase 56 IU/L (42-121) 08/21/21 06:37 Ammonia 11.0 umol/L (7-35) 08/20/21 11:51 Total Protein 5.4 g/dL (6.7-8.2) L 08/21/21 06:37 Albumin 2.9 g/dL (3.2-5.5) L 08/21/21 06:37 Globulin 2.5 g/dL (2.1-4.2) 08/21/21 06:37 Albumin/Globulin Ratio 1.2 (1.0-2.2) 08/21/21 06:37 Nasal Adenovirus (PCR) NOT DETECTED 08/19/21 23:08 Nasal B. parapertussis DNA (PCR) NOT DETECTED 08/19/21 23:08 Nasal Coronavir 229E PCR NOT DETECTED 08/19/21 23:08 Nasal Coronavir HKU1 PCR NOT DETECTED 08/19/21 23:08 Nasal Coronavir NL63 PCR NOT DETECTED 08/19/21 23:08 Nasal Coronavir OC43 PCR NOT DETECTED 08/19/21 23:08 Nasal Enterovir/Rhinovir PCR NOT DETECTED 08/19/21 23:08 Nasal Influenza B PCR NOT DETECTED 08/19/21 23:08 Nasal Influenza A PCR NOT DETECTED 08/19/21 23:08 Nasal Parainfluen 1 PCR NOT DETECTED 08/19/21 23:08 Nasal Parainfluen 2 PCR NOT DETECTED 08/19/21 23:08 Nasal Parainfluen 3 PCR NOT DETECTED 08/19/21 23:08 Nasal Parainfluen 4 PCR NOT DETECTED 08/19/21 23:08 Nasal RSV (PCR) NOT DETECTED 08/19/21 23:08 Nasal B.pertussis DNA PCR NOT DETECTED 08/19/21 23:08 Nasal C.pneumoniae (PCR) NOT DETECTED 08/19/21 23:08 [place] Human Metapneumo PCR NOT DETECTED 08/19/21 23:08 Nasal M.pneumoniae (PCR) NOT DETECTED 08/19/21 23:08 Nasal SARS-CoV-2 (PCR) NOT DETECTED 08/19/21 23:08
[2021-08-22] MEDS: PANTOPRAZOLE 40 MG TABLET PO SCH (11:21)
[2021-08-22] MEDS: SODIUM CHLORIDE 1 GM TABLET PO SCH (11:21)
[2021-08-22] MEDS: LOSARTAN 50 MG TABLET PO SCH (11:21)
[2021-08-22] MEDS: MONTELUKAST 10 MG TABLET PO SCH (20:44)
[2021-08-23] MEDS: SODIUM CHLORIDE FLUSH 0.9% 10 ML SYRINGE IVP SCH ×3 (06:05→20:27)
[2021-08-23] MEDS: PANTOPRAZOLE 40 MG TABLET PO SCH (06:19)
[2021-08-23] MEDS: IBUPROFEN 400 MG TABLET PO PRN ×2 (06:20→12:10)
[2021-08-23] MEDS: ACETAMINOPHEN 325 MG TABLET PO PRN ×2 (06:20→10:37)
[2021-08-23 07:19] LABS: BASOPHILS % (AUTO) 0.3 %; EOSINOPHILS # (AUTO) 0.1 10^3/uL (0.0-0.7); EOSINOPHILS % (AUTO) 1.3 %; HGB - HEMOGLOBIN 11.4 g/dL (12.0-16.0); LYMPHOCYTES # (AUTO) 0.8 10^3/uL (1.5-3.5); LYMPHOCYTES % (AUTO) 9.3 %; MEAN CORPUSCULAR HEMOGLOBIN 33.7 pg (27.0-31.0); MEAN CORPUSCULAR HGB CONC 33.5 g/dL (32.0-36.0); MEAN CORPUSCULAR VOLUME 100.6 fL (81.0-99.0); MEAN PLATELET VOLUME 12.2 fL (7.9-10.8); MONOCYTES # (AUTO) 0.9 10^3/uL (0.0-1.0); MONOCYTES % (AUTO) 10.1 %; NEUTROPHILS # (AUTO) 6.8 10^3/uL (1.5-6.6); NEUTROPHILS % (AUTO) 78.1 %; NRBC ABSOLUTE COUNT (AUTO) 0.08 x10^3/uL; NUCLEATED RED BLOOD CELLS AUTO 0.9 /100WBC; PLT - PLATELET COUNT 140 10^3/uL (130-450); RED BLOOD COUNT 3.38 10^6/uL (4.20-5.40); RED CELL DISTRIBUTION WIDTH 14.8 % (12.0-15.0); WHITE BLOOD COUNT 8.6 x10^3/uL (4.8-10.8)
[2021-08-23 07:29] LABS: ALBUMIN/GLOBULIN RATIO 1.1 (1.0-2.2); BILIRUBIN,TOTAL 0.9 mg/dL (0.2-1.0); CALCIUM 8.6 mg/dL (8.5-10.3); CREATININE 0.4 mg/dL (0.4-1.0); POTASSIUM 3.9 mmol/L (3.5-5.0); SLIDE REVIEW? Indicated; TOTAL PROTEIN 5.7 g/dL (6.7-8.2)
[2021-08-23 07:43] LABS: RBC MORPHOLOGY (MULTIPLE) 2+ ANISOCYTOSIS (NORMAL)
[2021-08-23] MEDS: BUDESONIDE 0.5 MG/2 ML NEB INH SCH ×2 (07:45→19:37)
[2021-08-23] MEDS: IPRATROPIUM/ALBUTEROL 3 ML NEB INH SCH ×4 (07:45→19:37)
[2021-08-23] MEDS: MULTIVITAMIN W/MINERALS TABLET PO SCH (09:29)
[2021-08-23] MEDS: FOLIC ACID 1 MG TABLET PO SCH (09:30)
[2021-08-23] MEDS: HYDROCORTISONE 10 MG TABLET PO SCH (09:30)
[2021-08-23] MEDS: LOSARTAN 50 MG TABLET PO SCH (09:30)
[2021-08-23] MEDS: METOPROLOL SUCCINATE 25 MG TABLET PO SCH (09:30)
[2021-08-23] MEDS: SODIUM CHLORIDE 1 GM TABLET PO SCH (12:10)
[2021-08-23] MEDS: LIDOCAINE PATCH 5% TOP PRN (12:19)
--- NOTE | 2021-08-23 16:09 | PROVIDER PROGRESS NOTE ---
Subjective - Prog Note Date Prog Note Date: 08/23/21 Prog Note Time: 16:03 - Subjective Pt reports feeling: No change Subjective: she is alert, deaf and not happy about needing PT. Daughter and granddaughter at the bedside. Wondering if she is going to be able to get the GI evaluation for new onset dysphagia. Really started over the last few days. She feels like food is getting stuck at the back of her throat or her upper chest. Daughter is adamant that a week ago she was eating sandwiches, soups, no problem. Daughter does report that weight with her PCP office was 104 pounds with all of her shoes and clothes on. Here she is about 100 pounds so daughter feels like mom has not lost any weight. Current Medications - Current Medications Current Medications: Active Medications Acetaminophen (Acetaminophen 325 Mg Tablet) 650 mg PO Q4HR PRN PRN Reason: Pain 1 to 4, or Fever Last Admin: 08/23/21 10:37 Dose: 650 mg Albuterol/Ipratropium (Ipratropium/Albuterol 3 Ml Neb) 3 ml INH RTQID [facility] Last Admin: 08/23/21 15:42 Dose: 3 ml Budesonide (Budesonide 0.5 Mg/2 Ml Neb) 0.5 mg INH RTBID [facility] Last Admin: 08/23/21 07:45 Dose: 0.5 mg Folic Acid (Folic Acid 1 Mg Tablet) 1 mg PO DAILY [facility] Last Admin: 08/23/21 09:30 Dose: 1 mg Hydrocortisone (Hydrocortisone 10 Mg Tablet) 10 mg PO DAILYWM [facility] Last Admin: 08/23/21 09:30 Dose: 10 mg Ibuprofen (Ibuprofen 400 Mg Tablet) 400 mg PO Q6HR PRN PRN Reason: PAIN Last Admin: 08/23/21 12:10 Dose: 400 mg Lidocaine (Lidocaine Patch 5%) 1 patch TOP DAILY PRN PRN Reason: PAIN Last Admin: 08/23/21 12:19 Dose: 1 patch Losartan Potassium (Losartan 50 Mg Tablet) 50 mg PO DAILY [facility] Last Admin: 08/23/21 09:30 Dose: 50 mg Methotrexate Sodium (Methotrexate 2.5 Mg Tablet) 15 mg PO We@0900 [facility] Metoprolol Succinate (Metoprolol Succinate 25 Mg Tablet) 25 mg PO DAILY [facility] Last Admin: 07/19/22 09:30 Dose: 25 mg Montelukast Sodium (Montelukast 10 Mg Tablet) 10 mg PO QPM [facility] Last Admin: 08/22/21 20:44 Dose: 10 mg Multivitamins/Minerals (Multivitamin W/Minerals Tablet) 1 tab PO DAILYWM [facility] Last Admin: 08/23/21 09:29 Dose: 1 tab Non-Formulary Medication (Leucovorin Calcium [Leucovorin Calcium]) 10 mg PO Q7D [facility] Ondansetron HCl (Ondansetron 4 Mg/2 Ml Vial) 4 mg IVP Q6HR PRN PRN Reason: Nausea / Vomiting Pantoprazole Sodium (Pantoprazole 40 Mg Tablet) 40 mg PO QDAC [facility] Last Admin: 08/23/21 06:19 Dose: 40 mg Sodium Chloride (Sodium Chloride Flush 0.9% 10 Ml Syringe) 10 ml IVP PRN PRN PRN Reason: NEEDED PER PROVIDER ORDERS Sodium Chloride (Sodium Chloride Flush 0.9% 10 Ml Syringe) 10 ml IVP 0100,0900,1700 [facility] Last Admin: 08/23/21 09:31 Dose: 10 ml Sodium Chloride (Sodium Chloride 1 Gm Tablet) 1 gm PO 1200 [facility] Last Admin: 08/23/21 12:10 Dose: 1 gm Folic Acid 1 mg PO DAILY 06/14/12 Methotrexate [Methotrexate Sodium] 15 mg PO WE 06/14/12 Olmesartan/Hydrochlorothiazide [Olmesartan-Hctz 20-12.5 mg Tab] 1 tab PO BID 06/23/16 Pantoprazole [Protonix] 40 mg PO QDAC 02/09/17 ondansetron HCL [Zofran] 4 mg PO TID PRN 02/09/17 Amox/Clav 875/125 [Augmentin 875/125 Tab] 1 tab PO BIDWM 08/20/21 Fluconazole [Diflucan] 100 mg PO DAILY 08/20/21 Nebivolol HCl [Bystolic] 2.5 mg PO QPM 08/20/21 predniSONE [Deltasone] 2 mg PO 0800 08/20/21 Leucovorin Calcium 10 mg PO Q7D 08/23/21 Objective - Vital Signs/Intake & Output Reviewed Vital Signs: Yes Vital Signs: Vital Signs x48h Temp Pulse Resp BP Pulse Ox 08/23/21 15:36 36.5 C 76 20 159/78 H 98 08/23/21 12:27 94 93 08/23/21 12:25 95 87 L 08/23/21 12:21 90 L 08/23/21 12:11 84 95 08/23/21 09:47 84 124/80 Intake & Output: Intake & Output 08/20/21 08/21/21 08/22/21 08/23/21 23:59 23:59 23:59 23:59 Intake Total 2966.667 2370 2320 390 Output Total 100 250 650 Balance 2966.667 2270 2070 -260 - Objective General Appearance: positive: Alert, Other (Sitting up in bed, gesticulating vigorously with her fingers and hands when she wants to make point, moderately deaf. Not really short of breath. Cachexia apparent w bl temporal wasting, no muscle mass) Eyes Bilateral: positive: PERRL, EOMI ENT: positive: No signs of dehydration, Other (low hoarse voice, hard to clear throat) Neck: positive: No JVD. negative: Stiff neck Respiratory: positive: No respiratory distress, Other (dimished at bases). negative: Wheezes, Rales, Rhonchi Cardiovascular: positive: Regular rate & rhythm. negative: Gallop/S4, Friction rub Abdomen: positive: Non-tender, No organomegaly, Nml bowel sounds, No distention Skin: positive: Warm, Dry, Other (echymoses of arms, legs) Extremities: positive: No pedal edema Neurologic/Psychiatric: positive: Oriented x3, Motor nml (but generalized weakness, needs asist), Weakness. negative: CN's nml (2-12) (deaf) - Lab Results Fish Bones: 08/23/21 06:53 08/23/21 06:53 Other Labs: Lab Results x24hrs 08/23/21 08/23/21 Range/Units 06:53 06:53 WBC 8.6 (4.8-10.8) x10^3/uL RBC 3.38 L (4.20-5.40) 10^6/uL Hgb 11.4 L (12.0-16.0) g/dL Hct 34.0 L (37.0-47.0) % MCV 100.6 H (81.0-99.0) fL MCH 33.7 H (27.0-31.0) pg MCHC 33.5 (32.0-36.0) g/dL RDW 14.8 (12.0-15.0) % Plt Count 140 (130-450) 10^3/uL MPV 12.2 H (7.9-10.8) fL Neut # (Auto) 6.8 H (1.5-6.6) 10^3/uL Lymph # (Auto) 0.8 L (1.5-3.5) 10^3/uL Mellette # (Auto) 0.9 (0.0-1.0) 10^3/uL Eos # (Auto) 0.1 (0.0-0.7) 10^3/uL Baso # (Auto) 0.0 (0.0-0.1) 10^3/uL Absolute Nucleated RBC 0.08 x10^3/uL Nucleated RBC % 0.9 /100WBC Manual Slide Review Indicated RBC Morph Micro Appear 2+ ANISOCYTOSIS (NORMAL) Sodium 130 L (135-145) mmol/L Potassium 3.9 (3.5-5.0) mmol/L Chloride 95 L (101-111) mmol/L Carbon Dioxide 27 (21-32) mmol/L Anion Gap 8.0 (6-13) BUN 11 (6-20) mg/dL Creatinine 0.4 (0.4-1.0) mg/dL Estimated GFR (MDRD) 150 (>89) Glucose 105 H (70-100) mg/dL Calcium 8.6 (8.5-10.3) mg/dL Total Bilirubin 0.9 (0.2-1.0) mg/dL AST 38 (10-42) IU/L ALT 74 H (10-60) IU/L Alkaline Phosphatase 61 (42-121) IU/L Total Protein 5.7 L (6.7-8.2) g/dL Albumin 3.0 L (3.2-5.5) g/dL Globulin 2.7 (2.1-4.2) g/dL Albumin/Globulin Ratio 1.1 (1.0-2.2) ABX Reporting Has patient been on IV antibiotics over the past 48 hours?: No Assessment/Plan - Problem List (1) Acute respiratory failure with hypoxia Impression: She was a poor historian on admission. The hospitalist was not able to get a detailed history until August 21 and . The hospitalist was able to speak to the daughter who was at the bedside. The patient stopped smoking approximately 20 years ago and smoked half pack a day. 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 She has never had PFTs, never been told she had COPD. Her CT scan showed moderate-severe emphysema and her physical exam is consistent with a COPD exacerbation. While she did improve starting from admission, she was still needing oxygen and she was converted to inpatient status on August 21. we are treating the cause of her hypoxia: COPD with exacerbation. (2) COPD with exacerbation Assessment/Plan: We have begun the patient on bronchodilators by nebulizer qid, Pulmicort via nebulizer twice daily, Singulair. She has noticed improvement after the nebulizer treatments, so has the daughter Continue supplemental oxygen, target sats greater than 88%. Patient will need walking oximetry test on the day of DCh She will need formal PFTs after discharge, done as an outpatient (3) Fall at home Qualifiers: Encounter type: subsequent encounter Qualified Code(s): W19.XXXD - Unspecified fall, subsequent encounter; Y92.009 - Unspecified place in unspecified non-institutional (private) residence as the place of occurrence of the external cause Assessment/Plan: 08/21 The patient claims she simply lost her balance as she was turning while dressing/putting on her bra but 08/20 she said she fell backwards. 08/22 she says she landed on her knees. The daughter did not see her fall, she heard the thud from several rooms away. 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 We checked orthostatic vital signs and they are entirely normal. She had been complaining about knee pain after this fall so we did knee x-rays August 21. Osteopenia and arthritic changes seen without any effusion. We have requested physical therapy evaluation for balance and gait and they do recommend SNF for rehab. She is not happy about this and was very vocal with Social work about her displeasure with this recommendation. Daughter and granddaughter explained to her that they cannot take care of her if she is not able to sit up and stand on her own so patient reluctantly agrees to placement for temorary rehab. (4) Sternal pain Assessment/Plan: She has had tenderness and pleuritic pain of the sternum, the daughter says this is a new complaint since the fall. This suggest that it was caused by a jarring blow that occurred when she fell at home. At admission she says she fell backwards. She then said she fell on her knees, therefore may be she fell forward. Her CT was read as having an old sternal fracture. Will give pain meds of Tylenol, Motrin and a Lidocaine patch. I told her it could be painful for about a week. (5) Right hip pain Assessment/Plan: She has chronic bilateral hip pain from her RA and osteoarthritis but specifically the right hip hurts more than normal, according to the patient A lidocaine patch was ordered as requested by the patient (6) Odynophagia Assessment/Plan: The patient reports that pills are getting stuck, and 08/22 her nurse needed to crush them. Daughter says this is a new complaint, normally the patient can eat chicken and steaks and it never gets stuck. I reviewed the CT chest images, and there is some narrowing of the distal esophagus. I spoke to the radiologist today, Dr. Renteria, and he states that CT imaging is not always accurate when it comes to the esophagus. Unless is a large tumor it is really hard to read. We do not have fluoroscopy. She cannot get an EGD due to her severe scoliosis deformities. As such the only solution is for her to get an upper GI with barium in an outpatient setting in a facility that can have fluoroscopy. Daughter says that is ok and I will let ROSELYN keith know so that she can be referred to [facility] which is where they like to go. 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 here we have her on Cortef, for 3 days planned. Daughter is also asking that she be on leucovorin 10 mg on August 25. And that she get methotrexate August 24 in the morning. I will look at medication list and reconciled to make those things happen. Will discuss with pharmacy. 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 Will stop that and give Cortef 10 mg twice daily, stress doses, planned for 3 days. today is day 4 so I am stopping them and resuming prednisone. Follow electrolytes (9) Compression fracture of thoracic vertebra Assessment/Plan: The T4 fracture age is unknown, sometime after 2018 according to imaging. She has had prior compression fractures of the other compressed thoracic vertebrae. She has no pain in the spine (10) Hyponatremia Assessment/Plan: This is likely from her adrenal insufficiency. I suspect this may have contributed to the fall as well. Will continue with gentle IV saline hydration. She varies between 128-130. Today 130. Follow BMP daily. She may need a salt tablet daily started as well (11) Hypokalemia Assessment/Plan: This is likely related to her being on HCTZ as one of her blood pressure meds. It may be related to her adrenal insufficiency and also from poor p.o. intake. On potassium replacement. Follow BMP daily (12) Hypertension Assessment/Plan: Patient is on a beta-kesha and a combination ARB/HCTZ. We will continue a (new) beta-kesha that is beta-1 selective (Toprol XL), given the COPD and stop the nadolol (and we do not carry nadolol on formulary). Will not give the EDMUNDO containing HCTZ, since she is hyponatremic and probably volume depleted. Will be checking orthostatic vital signs to see if a second blood pressure med is even needed. (13) Prerenal azotemia Assessment/Plan: This persists and suggests that she has hypovolemic hyponatremia, and that she may have been orthostatic leading to the fall. BUN was consistently at 21. Today she is 11. Creatinine is 0.4. Continue with gentle IV saline hydration. We will permanently stop her blood pressure med that contains HCTZ Follow BMP daily (14) Abnormal transaminases Assessment/Plan: Mild increase of AST noted at admission. Both AST and ALT were elevated, now somewhat declining. She is on methotrexate. Etiology is not clear, there is no alk phos elevation to think of obstructive problem. There is no history of excessive alcohol use Possibly she has hepatic bruising with her fall. Avoid hepatotoxins
[2021-08-23] MEDS ORDERED: LEUCOVORIN PO SCH (18:00)
[2021-08-23] MEDS: MONTELUKAST 10 MG TABLET PO SCH (20:27)
[2021-08-24 06:36] LABS: BASOPHILS % (AUTO) 0.2 %; EOSINOPHILS # (AUTO) 0.2 10^3/uL (0.0-0.7); HCT - HEMATOCRIT 31.9 % (37.0-47.0); LYMPHOCYTES # (AUTO) 0.8 10^3/uL (1.5-3.5); LYMPHOCYTES % (AUTO) 8.3 %; MEAN CORPUSCULAR HEMOGLOBIN 34.5 pg (27.0-31.0); MEAN CORPUSCULAR HGB CONC 34.5 g/dL (32.0-36.0); MEAN PLATELET VOLUME 11.1 fL (7.9-10.8); MONOCYTES % (AUTO) 10.4 %; NEUTROPHILS # (AUTO) 7.4 10^3/uL (1.5-6.6); NEUTROPHILS % (AUTO) 78.8 %; NRBC ABSOLUTE COUNT (AUTO) 0.07 x10^3/uL; NUCLEATED RED BLOOD CELLS AUTO 0.7 /100WBC; PLT - PLATELET COUNT 155 10^3/uL (130-450); RED BLOOD COUNT 3.19 10^6/uL (4.20-5.40); RED CELL DISTRIBUTION WIDTH 14.7 % (12.0-15.0); WHITE BLOOD COUNT 9.4 x10^3/uL (4.8-10.8)
[2021-08-24 06:50] LABS: ALBUMIN 2.8 g/dL (3.2-5.5); BILIRUBIN,TOTAL 0.8 mg/dL (0.2-1.0); CALCIUM 8.5 mg/dL (8.5-10.3); CREATININE 0.4 mg/dL (0.4-1.0); POTASSIUM 3.8 mmol/L (3.5-5.0); TOTAL PROTEIN 5.5 g/dL (6.7-8.2)
[2021-08-24] MEDS: SODIUM CHLORIDE FLUSH 0.9% 10 ML SYRINGE IVP SCH ×2 (06:56→09:29)
[2021-08-24] MEDS: PANTOPRAZOLE 40 MG TABLET PO SCH (06:56)
[2021-08-24] MEDS ORDERED: predniSONE 5 MG TABLET PO SCH (08:00)
[2021-08-24] MEDS: BUDESONIDE 0.5 MG/2 ML NEB INH SCH (08:47)
[2021-08-24] MEDS: IPRATROPIUM/ALBUTEROL 3 ML NEB INH SCH ×3 (08:48→13:13)
[2021-08-24] MEDS ORDERED: METHOTREXATE 2.5 MG TABLET PO SCH (09:00)
[2021-08-24] MEDS: MULTIVITAMIN W/MINERALS TABLET PO SCH (09:28)
[2021-08-24] MEDS: LOSARTAN 50 MG TABLET PO SCH (09:28)
[2021-08-24] MEDS: FOLIC ACID 1 MG TABLET PO SCH (09:28)
[2021-08-24] MEDS: METOPROLOL SUCCINATE 25 MG TABLET PO SCH (09:28)
--- NOTE | 2021-08-24 11:45 | Discharge Plan ---
"Discharge Plan for SNF / EDDA - Discharge Plan And Transition Orders Problem Reviewed?: Yes Disposition: 03 SNF DC/Xfer Condition: Fair Allergies and Adverse Reactions: Allergies Allergy/AdvReac Type Severity Reaction Status Date / Time Penicillins Allergy Intermediate Rash Verified 06/23/16 16:11 Sulfa (Sulfonamide Allergy Intermediate Rash Verified 06/23/16 16:11 Antibiotics) Latex, Natural Rubber Allergy Rash Verified 01/12/17 14:33 Health Concerns: You came to the emergency room because you slipped in the bathroom and initially told us that you fell backwards. But after evaluating you and looking at your body and realizing that all the bruises were in the front of your body you may have fallen forward. You did not lose consciousness. CAT scan of your head and neck did not show any fractures or bleeding inside your skull. However while you were here we noted that your oxygen level was really low and we found you to have emphysema. This is a new diagnosis for you. But the x-rays of your lungs shows you to have the ballooning and loss of normal lung tissue that we find in people with emphysema. 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 You had quite a bit of aches and pains and we x-rayed your hips, knees, back and there were no fractures but you have osteoporosis and osteoarthritis. While here you also started complaining of problems with swallowing. That requires you to get an upper GI with barium. Unfortunately the machine that does not in our hospital is not working and is broken. After being here a few days, you were very weak. You are not able to ambulate the way you usually do. Physical therapy evaluated you and feels that you need a little bit of exercise and rehab therapy at a detention facility. You do not like this idea but are amenable to going to make sure you can get stronger to get back home. Plan of Treatment: 1. nursing home facility for rehabilitation to increase her strength so that you can get home 2. When you are at the detention facility, see if they can get you an appointment for an upper GI study with barium to look at your esophagus to see why you are having problems swallowing. Your daughter states that you have a relationship with [facility] and they can do this test in the radiology suite. 3. Please see your primary care provider, Brie Phipps, after you leave the rehabilitation facility. 4. Please see Brie Phipps in follow-up for your new diagnosis of emphysema. Care Goals: Your goal is to return home. However, we anticipate that you will need more and more help at home as you get older. Assessment: At this point the goal is to get you home after rehab. You and your family will then make plans for the future to help you stay at home and get the help that you need. - SNF / ED[facility] Transition Orders Discharge Diagnosis: 1. Acute respiratory failure with hypoxia 2. COPD with acute exacerbation 3. Fall at home 4. Chest wall contusion with chest pain 5. Pain in right hip 6. Dysphagia 7. Postprocedural adrenocortical hypofunction 8. Osteoporosis with wedge compression fracture of T-spine 9. Chronic hyponatremia 10. Hypokalemia 11. Essential hypertension 12. Transitory elevation of liver enzymes 13. Prerenal azotemia 14. Rheumatoid arthritis Medicare Certification Statement: I certify that [facility] care is medically necessary on a continuing basis for any of the conditions for which she/he is receiving care during hospitalization. Notify PCP of admission and forward orders to primary provider for signature. Weight on admission and: Monthly Other Notification Orders: Call PCP immediately if patient develops dyspnea, chest pain/tightness or edema. House Bowel Program: Yes Additional Bowel Program Orders: If no BM after 2 days, nurse may give M.O.M. 30ml PO PRN and/or ducolax Supp 1 OK and/or VALENTE 250mg P.O., and/or senna 1-2 tabs PO. On day 3 nurse may give repeat above order until residents constipation is resolved. Annual Influenza Vaccine (between Oct 06 and May 05): Yes Medication Orders: PLEASE REFER TO THE DISCHARGE MEDICATION LIST. Insulin Orders?: No - Medications New Prescriptions: predniSONE [Deltasone] 2 mg PO 0800 #5 tab Folic Acid 1 mg PO DAILY #5 tablet Pantoprazole [Protonix] 40 mg PO QDAC #5 tab - Diet Type: Geriatric Texture: Dysphagia mech Liquids: Thin May have monthly special meal: Yes - Therapies | Activity Therapy: Evaluation | Treat if indicated: PT, OT, Swallowing / ST Rehabilitation Potential: Return to independent living Activity: Activity as Tolerated Weight Bearing: Full Weight Assistance Devices: Walker Follow Up: Follow-up with primary care provider Brie Phipps"
[2021-08-24] MEDS: SODIUM CHLORIDE 1 GM TABLET PO SCH (12:34)
[2021-08-24 13:20] VITALS: BP 160/84
[2021-08-24 14:07] LABS: CORONAVIRUS 229E-RESP PCR NOT DETECTED; CORONAVIRUS HKU1-RESP PCR NOT DETECTED; CORONAVIRUS NL63-RESP PCR NOT DETECTED; CORONAVIRUS OC43-RESP PCR NOT DETECTED; HUMAN METAPNEUMOVIRUS NOT DETECTED; INFLUENZA A- RESP PCR PANEL NOT DETECTED; RHINOVIRUS/ENTEROVIRUS NOT DETECTED; SARS-CoV-2 -RESP PCR PANEL NOT DETECTED
[2021-08-24 14:08] LABS: B. PARAPERTUSSIS- RESP PCR PAN NOT DETECTED; B. PERTUSSIS- RESP PCR PANEL NOT DETECTED; C. PNEUMONIAE- RESP PCR PANEL NOT DETECTED; INFLUENZA B - RESP PCR PANEL NOT DETECTED; M. PNEUMONIAE- RESP PCR PANEL NOT DETECTED; PARAINFLUENZA VIRUS 1 NOT DETECTED; PARAINFLUENZA VIRUS 2 NOT DETECTED; PARAINFLUENZA VIRUS 3 NOT DETECTED; PARAINFLUENZA VIRUS 4 NOT DETECTED; RSV- RESP PCR PANEL NOT DETECTED
[2021-08-25] MEDS ORDERED: LEUCOVORIN PO SCH (09:00)
--- NOTE | 2021-08-28 19:10 | DISCHARGE SUMMARY ---
"Discharge Summary Admit Date: 08/21/21 Discharge Date: 08/24/21 Discharging Provider: Simin Shen MD Primary Care Provider: Lisandra Phipps MD Code Status: Do Not Attempt Resuscitation Condition at Discharge: Fair Discharge Disposition: 03 SNF DC/Xfer Discharge Facility [facility]: [facility] - DIAGNOSES Discharge Diagnoses with Status of Each Condition: 1. Acute respiratory failure with hypoxia 2. COPD with acute exacerbation 3. Fall at home 4. Chest wall contusion with chest pain 5. Pain in right hip 6. Dysphagia 7. Postprocedural adrenocortical hypofunction 8. Osteoporosis with wedge compression fracture of T-spine 9. Chronic hyponatremia 10. Hypokalemia 11. Essential hypertension 12. Transitory elevation of liver enzymes 13. Prerenal azotemia 14. 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 She slipped and fell backwards in the bathroom while trying to get dressed. She hit the back of her head and back when she fell. She denies loss of consciousness. Work-up in the ED included CT of the head and neck which were unremarkable. She was noted to be hypoxic with oxygen saturation as low as 77% on room air tho ugh no external signs of dyspnea. With supplemental oxygen her oxygen saturation improves into the 90s on 3L. A D-dimer level was greater than 1050. CT angiogram of the chest was negative for PE or pneumonia. Due to her oxygen requirement she was presented for continued management in the hospital. At bedside she appears comfortable. She denies pain. She also denies chest pain, dyspnea, abdominal pain, nausea, vomiting, fever or chills. 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 Chest x-ray without acute cardiopulmonary process on admission 2. Head CT with no acute findings. Moderate global cerebral volume loss and chronic microvascular ischemic changes 3. Chest CT without acute traumatic finding. Remote compression fractures. Severe scoliosis. Exaggerated thoracic kyphosis. Moderate to severe apical predominant emphysematous changes. Chronic coarsened interlobular septal thickening. Dilated main pulmonary trunks. 4. Cervical spine CT no fracture identified. No subluxation. No acute traumatic finding. 5. Abdomen pelvis CT without free air. No acute trauma of solid organ injury. 6. Chest thorax CT angiogram without pulmonary embolism. Moderate to severe centrilobular emphysema change. No consolidation. Moderate superior endplate compression fracture T4 but new compared to study from 2018. No definite retropulsed fragments in the spinal canal. Chronic compression fractures T8 and T10 7. Knee x-ray of both knees. Generalized osseous mineralization. Joint space and narrowing with stippled intra-articular calcification consistent with chondrocalcinosis. No fracture or joint effusion seen. - HOSPITAL COURSE Hospital Course: The patient was a poor historian on admission. The hospitalist was not able to get a detailed history until August 21 and and family came to the bedside. Patient stopped smoking 20 years ago, smoked half a pack per day. 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 She has never had PFTs and never been told she has COPD. This diagnosis was discussed with the family. She was felt to be an acute COPD exacerbation as the cause of her hypoxia. She was given nebulizers, Pulmicort, Singulair. She will need formal PFTs in the outpatient setting. As regards to her fall, multiple conflicting stories. Somewhere that she fell and hit the back of her head. Somewhere that she fell forward. Physical exam showed more conclusive contusions to the front of her body as if she fell forward. She was seen by PT and OT for balance and gait. They do recommend [facility] facility for rehab. Patient was not happy about this and daughter and granddaughter spent much time explaining to the patient why she needed to go. She had sternal pain after the fall. CT had an old sternal fracture but not acute fracture. The rest of her problems of hypokalemia, hypotension and prerenal azotemia resolved. She did have a slight bump in her transaminases. She has no history of alcohol abuse. Supposition that there may been trauma. However this patient is also on methotrexate. On the day of discharge, and reconciling her home meds, Augmentin and Diflucan were present on her list. Throughout the history and notes for this stay, there is no mention of why this patient was on Augmentin and Diflucan. As such they were discontinued at discharge. However, it should be noted that they should be resumed at the [facility] facility after I discussed the case with the patient's infectious disease specialist Dr. Urban from [facility]. 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 She is not a surgical candidate. As such they are controlling the disease with the Augmentin and Diflucan. She has been on these medications for over 2 years. She is on Diflucan to prevent the yeast infection that is secondary to it. The patient also complained of new dysphagia. Pills were getting stuck in the back of her throat and nurse needed to crush them. Daughter felt that this was a new problem. There were some narrowing of the distal esophagus according to radiology. An EGD or general surgery consult was discussed with the family. However, in speaking to general surgery, her kyphosis and scoliosis was prohibitive in trying to get a scope down her. I spoke to radiology and they also felt that CT would not be an appropriate study for her. Even with barium. They recommended an outpatient upper GI with barium swallow. We do not have fluoroscopy at this institution. 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 At discharge temperature was 36.6. Heart rate 78. Blood pressure 160/84. Respirations 20. 99% on 2 L. She is 4 foot 8 inches tall and weighs 45 kg. She is a moderately deaf lady, who is very good expressing herself. Gesticulate spontaneously using her hands. Cachexia is evident with bilateral temporal wasting and reduced muscle mass. She has a low hoarse voice, she is weak enough that it is hard for her to clear her throat. Breath sounds diminished at lung bases but otherwise negative for wheezing rales or rhonchi. Nontender abdomen with normal bowel sounds. No distention. No pedal edema. She has generalized weakness and needs assist to sit up and stand. No focal motor deficits. Alert and oriented x3. Not happy about having to go to rehab. Would rather go home. She still requires oxygen. But she is not tachypneic with speaking and does not go into respiratory distress with speaking. Greater than 30 minutes was spent coordinating discharge - ALLERGIES Allergies/Adverse Reactions: Allergies Allergy/AdvReac Type Severity Reaction Status Date / Time Penicillins Allergy Intermediate Rash Verified 08/25/21 18:13 Sulfa (Sulfonamide Allergy Intermediate Rash Verified 08/25/21 18:13 Antibiotics) Latex, Natural Rubber Allergy Rash Verified 08/25/21 18:13 - MEDICATIONS Home Medications: Ambulatory Orders Medication Instructions Recorded Confirmed Folic Acid 1 mg PO DAILY 06/14/12 08/20/21 Methotrexate [Methotrexate Sodium] 15 mg PO WE 06/14/12 08/20/21 Olmesartan/Hydrochlorothiazide 1 tab PO BID 06/23/16 08/20/21 [Olmesartan-Hctz 20-12.5 mg Tab] ondansetron HCL [Zofran] 4 mg PO TID PRN 02/09/17 08/20/21 Nebivolol HCl [Bystolic] 2.5 mg PO QPM 08/20/21 08/20/21 Acetaminophen [Tylenol] 650 mg PO Q4HR PRN tablet 08/24/21 Budesonide [Pulmicort] 0.5 mg INH RTBID 08/24/21 Folic Acid 1 mg PO DAILY #5 tablet 08/24/21 Ipratropium/Albuterol [Duoneb] 3 ml INH RTQID 08/24/21 Lidocaine Patch 5% [Lidoderm Patch] 1 patch TOP DAILY PRN patch 08/24/21 Pantoprazole [Protonix] 40 mg PO QDAC #5 tab 08/24/21 Sodium Chloride [Salt Tab] 1 gm PO 1200 tablet 08/24/21 predniSONE [Deltasone] 2 mg PO 0800 #5 tab 08/24/21 LORazepam [Ativan] 0.5 mg PO Q6H PRN #15 tablet 08/25/21 - LABS Result Diagrams: 08/24/21 06:29 08/24/21 06:29"
== END 2021-08-24 14:00 | DRG 189 ==
LOC: EDUNIT# → ED 17:34 → MS2 22:41 → OBSVTOIN 08-20 15:54
PROVIDERS: ADMIT Internal Medicine; ATTEND Specialist
DX: R09.02 Hypoxemia (principal); S09.90XA Unspecified injury of head, initial encounter; S20.229A Contusion of unspecified back wall of thorax, initial encounter; J96.01 Acute respiratory failure with hypoxia; J44.1 Chronic obstructive pulmonary disease with (acute) exacerbation; R94.31 Abnormal electrocardiogram [ECG] [EKG]; M80.88XA Other osteoporosis with current pathological fracture, vertebra(e), initial encounter for fracture; E87.1 Hypo-osmolality and hyponatremia; E89.6 Postprocedural adrenocortical (-medullary) hypofunction; S22.049A Unspecified fracture of fourth thoracic vertebra, initial encounter for closed fracture; S22.060A Wedge compression fracture of T7-T8 vertebra, initial encounter for closed fracture; S22.070A Wedge compression fracture of T9-T10 vertebra, initial encounter for closed fracture; S20.219A Contusion of unspecified front wall of thorax, initial encounter; W01.0XXA Fall on same level from slipping, tripping and stumbling without subsequent striking against object, initial encounter; Y92.002 Bathroom of unspecified non-institutional (private) residence as the place of occurrence of the external cause; M25.551 Pain in right hip; E87.6 Hypokalemia; I10 Essential (primary) hypertension; M06.9 Rheumatoid arthritis, unspecified; M27.2 Inflammatory conditions of jaws; M19.90 Unspecified osteoarthritis, unspecified site; H91.90 Unspecified hearing loss, unspecified ear; D72.829 Elevated white blood cell count, unspecified; R13.10 Dysphagia, unspecified; R74.01 Elevation of levels of liver transaminase levels; R79.89 Other specified abnormal findings of blood chemistry; Z20.822 Contact with and (suspected) exposure to COVID-19; Z87.891 Personal history of nicotine dependence; Z88.0 Allergy status to penicillin; Z88.2 Allergy status to sulfonamides; Z90.710 Acquired absence of both cervix and uterus; Z91.040 Latex allergy status
CPT/HCPCS: 36415; 70450; 71045; 71250; 71275; 72125; 73565; 74176; 80048; 80053; 80076; 82140; 82977; 85025; 85379; 85610; 87633; 93005; 94640; 96374; 97162; 97164; 97165; 97530; 99283; 99285; A9270; J7512; J7626; J8610; Q9967

== ENCOUNTER 2021-08-25 17:53 | Outpatient (CLI) | payer MEDICARE, BC, OTHER | END 2021-08-25 17:54 | disposition critical access hospital (66) | LOC: EMS 17:53 | DX: R06.02 Shortness of breath (principal); R42 Dizziness and giddiness; F45.8 Other somatoform disorders | CPT/HCPCS: A0425; A0427 ==

== ENCOUNTER 2021-08-25 18:01 | Emergency (ER) | payer MEDICARE, BC, OTHER ==
--- NOTE | 2021-08-25 18:19 | ED Physician Documentation ---
History of Present Illness - Stated complaint Stated Complaint: SOA - Chief complaint Chief Complaint: Neuro - History obtained from History obtained from: Patient - Additonal information Additional information: 89-year-old woman presents by ambulance from [facility] for shortness of breath and pain with deep breathing. She was just released from the hospital yesterday after a stay for COPD exacerbation. She states she is neither better nor worse but complains of pain when she takes a deep breath. It is only mild if she takes a shallow breath. No increase in shortness of breath. Does have bilateral calf pain but no edema. Review of Systems Ten Systems: 10 systems reviewed and negative Constitutional: denies: Fever, Chills Cardiac: reports: Chest pain / pressure. denies: Palpitations Respiratory: reports: Dyspnea. 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 - Present Medications Home Medications: Ambulatory Orders Medication Instructions Recorded Confirmed Folic Acid 1 mg PO DAILY 06/14/12 08/20/21 Methotrexate [Methotrexate Sodium] 15 mg PO WE 06/14/12 08/20/21 Olmesartan/Hydrochlorothiazide 1 tab PO BID 06/23/16 08/20/21 [Olmesartan-Hctz 20-12.5 mg Tab] ondansetron HCL [Zofran] 4 mg PO TID PRN 02/09/17 08/20/21 Nebivolol HCl [Bystolic] 2.5 mg PO QPM 08/20/21 08/20/21 Acetaminophen [Tylenol] 650 mg PO Q4HR PRN tablet 08/24/21 Budesonide [Pulmicort] 0.5 mg INH RTBID 08/24/21 Folic Acid 1 mg PO DAILY #5 tablet 08/24/21 Ipratropium/Albuterol [Duoneb] 3 ml INH RTQID 08/24/21 Lidocaine Patch 5% [Lidoderm Patch] 1 patch TOP DAILY PRN patch 08/24/21 Pantoprazole [Protonix] 40 mg PO QDAC #5 tab 08/24/21 Sodium Chloride [Salt Tab] 1 gm PO 1200 tablet 08/24/21 predniSONE [Deltasone] 2 mg PO 0800 #5 tab 08/24/21 LORazepam [Ativan] 0.5 mg PO Q6H PRN #15 tablet 08/25/21 - Allergies Allergies/Adverse Reactions: Allergies Allergy/AdvReac Type Severity Reaction Status Date / Time Penicillins Allergy Intermediate Rash Verified 08/25/21 18:13 Sulfa (Sulfonamide Allergy Intermediate Rash Verified 08/25/21 18:13 Antibiotics) Latex, Natural Rubber Allergy Rash Verified 08/25/21 18:13 - Social History Does the pt smoke?: No Smoking Status: Former smoker Does the pt drink ETOH?: No Does the pt have substance abuse?: No - Immunizations Immunizations are current?: Yes - POLST Patient has POLST: No POLST Status: Full Code PD ED PE NORMAL - Vitals Vital signs reviewed: Yes - General General: Alert and oriented X 3 (Hard of hearing) - HEENT HEENT: PERRL, EOMI - Neck Neck: Supple, no meningeal sign, No bony TTP - Cardiac Cardiac: RRR, No murmur - Respiratory Respiratory: No respiratory distress, Other (Diminished at the bases, nonlabored) - Abdomen Abdomen: Non tender - Back Back: No CVA TTP, No spinal TTP - Derm Derm: Normal color, Warm and dry - Extremities Extremities: No edema - Neuro Neuro: Alert and oriented X 3, Normal speech Results - Vitals Vitals: Vital Signs - 24 hr 08/25/21 08/25/21 08/25/21 18:09 19:17 19:22 Temperature 36.0 C L Heart Rate 83 77 Respiratory 21 21 Rate Blood Pressure 148/130 H 157/81 H O2 Saturation 98 96 90 L 08/25/21 08/25/21 08/25/21 19:23 21:03 22:16 Temperature Heart Rate 94 82 Respiratory 24 24 Rate Blood Pressure 187/89 H O2 Saturation 95 96 08/25/21 08/25/21 23:00 23:11 Temperature 36 C L 36 C L Heart Rate 82 82 Respiratory 24 19 Rate Blood Pressure 187/89 H 183/99 H O2 Saturation 96 96 Oxygen O2 Source [] Nasal cannula O2 Source [] Nasal cannula O2 Source Nasal cannula - EKG (time done) 1835 Rate: Rate (enter#) (84) Rhythm: NSR ( w pac) [place]: LAD Intervals: Normal [place] QRS: Normal Ischemia: Q waves (v1-v2). No: ST elevation c/w ischemia, ST depression - Labs Labs: Laboratory Tests 08/25/21 08/25/21 08/25/21 18:45 18:45 18:45 WBC 12.4 H RBC 3.48 L Hgb 11.9 L Hct 34.4 L MCV 98.9 MCH 34.2 H MCHC 34.6 RDW 14.7 Plt Count 200 MPV 10.9 H Neut # (Auto) 10.6 H Lymph # (Auto) 0.6 L Stanton # (Auto) 1.1 H Eos # (Auto) 0.1 Baso # (Auto) 0.0 Absolute Nucleated RBC 0.03 Band Neuts % (Manual) Not Reportable Abnorm Lymph % (Manual) Not Reportable Nucleated RBC % 0.2 Neutrophils # (Manual) Not Reportable Lymphocytes # (Manual) Not Reportable Monocytes # (Manual) Not Reportable Eosinophils # (Manual) Not Reportable Basophils # (Manual) Not Reportable Differential Comment MANUAL=AUTO DIFF Manual Slide Review Indicated WBC Morphology NORMAL APPEARANCE Platelet Estimate NORMAL (130-450,000) Platelet Morphology NORMAL APPEARANCE RBC Morph Micro Appear 1+ HYPOCHROMASIA Sodium 125 L Potassium 3.5 Chloride 83 L Carbon Dioxide 31 Anion Gap 11.0 BUN 8 Creatinine 0.5 Estimated GFR (MDRD) 116 Glucose 77 Calcium 8.5 Total Bilirubin 1.3 H AST 26 ALT 45 Alkaline Phosphatase 64 Troponin I High Sens 47.7 H* Total Protein 6.1 L Albumin 3.0 L Globulin 3.1 Albumin/Globulin Ratio 1.0 Lipase 25 08/25/21 20:50 WBC RBC Hgb Hct MCV MCH MCHC RDW Plt Count MPV Neut # (Auto) Lymph # (Auto) Stanton # (Auto) Eos # (Auto) Baso # (Auto) Absolute Nucleated RBC Band Neuts % (Manual) Abnorm Lymph % (Manual) Nucleated RBC % Neutrophils # (Manual) Lymphocytes # (Manual) Monocytes # (Manual) Eosinophils # (Manual) Basophils # (Manual) Differential Comment Manual Slide Review WBC Morphology Platelet Estimate Platelet Morphology RBC Morph Micro Appear Sodium Potassium Chloride Carbon Dioxide Anion Gap BUN Creatinine Estimated GFR (MDRD) Glucose Calcium Total Bilirubin AST ALT Alkaline Phosphatase Troponin I High Sens 48.3 H* Total Protein Albumin Globulin Albumin/Globulin Ratio Lipase PD MEDICAL DECISION MAKING - ED course ED course: This is an 89-year-old woman who presents from [facility] for pain with deep breathing. She just got out of the hospital. She declines pain medication. Appears comfortable with normal vital signs. She is on a width of oxygen and r equested something for anxiety. She was given 0.25 mg of Ativan IV and some IV fluids. Her daughter is at the bedside who is supportive but frustrated. The patient has developed a new dysphagia which could not be worked up here and was planned to be worked up as an outpatient. Daughter would like to take her home but they do not have oxygen set up at home. The daughter is worried because the patient does better with a nebulizer treatment, but it sounds like those can to be given at the SNF. I queried the hospitalist about admission criteria but he admits that she does not fit any at this juncture. Sodium/albumin all at prior baselines. After much discussion the daughter would like her go back to the SNF for now for oxygen therapy with a prescription for lorazepam which did help. I did email ROSELYN Phipps regarding the need for a swallow study. Departure - Departure Disposition: 01 Home, Self Care Clinical Impression: Back contusion, COPD with exacerbation, Dysphagia Condition: Good Record reviewed to determine appropriate education?: Yes Instructions: COPD Dc Prescriptions: LORazepam [Ativan] 0.5 mg PO Q6H PRN #15 tablet PRN Reason: Anxiety Comments: Aryan was seen today for some atypical chest pain, the work-up for that was negative. She is having a lot of anxiety and I sent a prescription for lorazepam to [facility] pharmacy. She can take it as needed for anxiety. Otherwise continue current plan of care, she will need to have a swallow study and her primary care physician should be ordering that. [place] for new or worsening symptoms. Discharge Date/Time: 08/25/21 23:10
--- NOTE | 2021-08-25 18:37 | XRAY Report ---
PROCEDURE: Chest 1 View X-Ray INDICATIONS: Chest Pain TECHNIQUE: One view of the chest was acquired. COMPARISON: Chest CTs dated 08/19/2021 and chest radiograph dated 08/19/2021 FINDINGS: Surgical changes and devices: Surgical clips are noted in epigastric region. Lungs and pleura: No significant pleural effusions or pneumothorax. Chronic emphysematous changes ar e noted. Mediastinum: Tortuous thoracic aorta is seen. Heart size is enlarged. Bones and chest wall: Marked scoliosis of thoracolumbar spine is again seen unchanged from prior sean dy. No suspicious bony lesions. Overlying soft tissues appear unremarkable. IMPRESSION: No focal infiltrate, significant pleural effusion or pneumothorax. COPD. Marked scoliosis unchanged f rom prior study. Reviewed by: Cole Reaves MD on 08/25/2021 6:36 PM PDT Approved by: Cole Reaves MD on 08/25/2021 6:36 PM PDT Station ID: [id number]
[2021-08-25 18:55] LABS: BASOPHILS % (AUTO) 0.2 %; EOSINOPHILS # (AUTO) 0.1 10^3/uL (0.0-0.7); EOSINOPHILS % (AUTO) 0.5 %; HCT - HEMATOCRIT 34.4 % (37.0-47.0); HGB - HEMOGLOBIN 11.9 g/dL (12.0-16.0); LYMPHOCYTES # (AUTO) 0.6 10^3/uL (1.5-3.5); LYMPHOCYTES % (AUTO) 4.8 %; MEAN CORPUSCULAR HEMOGLOBIN 34.2 pg (27.0-31.0); MEAN CORPUSCULAR HGB CONC 34.6 g/dL (32.0-36.0); MEAN CORPUSCULAR VOLUME 98.9 fL (81.0-99.0); MEAN PLATELET VOLUME 10.9 fL (7.9-10.8); MONOCYTES # (AUTO) 1.1 10^3/uL (0.0-1.0); MONOCYTES % (AUTO) 8.8 %; NEUTROPHILS # (AUTO) 10.6 10^3/uL (1.5-6.6); NEUTROPHILS % (AUTO) 85.4 %; NRBC ABSOLUTE COUNT (AUTO) 0.03 x10^3/uL; NUCLEATED RED BLOOD CELLS AUTO 0.2 /100WBC; PLT - PLATELET COUNT 200 10^3/uL (130-450); RED BLOOD COUNT 3.48 10^6/uL (4.20-5.40); RED CELL DISTRIBUTION WIDTH 14.7 % (12.0-15.0); SLIDE REVIEW? Indicated; WHITE BLOOD COUNT 12.4 x10^3/uL (4.8-10.8)
[2021-08-25 19:08] LABS: BILIRUBIN,TOTAL 1.3 mg/dL (0.2-1.0); CREATININE 0.5 mg/dL (0.4-1.0); TOTAL PROTEIN 6.1 g/dL (6.7-8.2)
[2021-08-25 19:13] LABS: CALCIUM 8.5 mg/dL (8.5-10.3); DIFFERENTIAL COMMENT MANUAL=AUTO DIFF; PLATELET ESTIMATE, MANUAL NORMAL (130-450,000) (NORMAL); PLATELET MORPHOLOGY NORMAL APPEARANCE (NORMAL); POTASSIUM 3.5 mmol/L (3.5-5.0); WBC MORPHOLOGY (MULTIPLE) NORMAL APPEARANCE (NORMAL)
[2021-08-25] MEDS ORDERED: LORazepam 2 MG/ML VIAL IVP STA (19:31)
[2021-08-25] MEDS ORDERED: SODIUM CHLORIDE 0.9% 1,000 ML IV STA (19:31)
[2021-08-25] MEDS ORDERED: IPRATROPIUM/ALBUTEROL 3 ML NEB INH STA (21:32)
[2021-08-25 23:16] VITALS: BP 183/99
== END 2021-08-25 23:10 | disposition home or self-care (01) ==
LOC: EDUNIT# → ED 18:01
DX: S20.229A Contusion of unspecified back wall of thorax, initial encounter (principal); J44.1 Chronic obstructive pulmonary disease with (acute) exacerbation; R13.10 Dysphagia, unspecified; Z87.891 Personal history of nicotine dependence
CPT/HCPCS: 36415; 71045; 80053; 83690; 84484; 85025; 93005; 94640; 94664; 96374; 99284; J2060

== ENCOUNTER 2021-08-25 23:08 | Outpatient (CLI) | payer MEDICARE, BC, OTHER | END 2021-08-25 23:09 | disposition home or self-care (01) | LOC: EMS 23:08 | PROVIDERS: ATTEND Emergency Medicine | DX: Z74.01 Bed confinement status (principal); R41.0 Disorientation, unspecified; J44.9 Chronic obstructive pulmonary disease, unspecified; Z99.81 Dependence on supplemental oxygen | CPT/HCPCS: A0425; A0428 ==